=== PATIENT | female | born 1935 | race Caucasian/White ===

== ENCOUNTER 2017-05-31 15:45 | Inpatient (IN) ==
[2017-05-31] MEDS ORDERED: ONDANSETRON 4 MG/2 ML VIAL IV STA (17:09)
[2017-05-31] MEDS ORDERED: ASPIRIN 325 MG TABLET PO STA (17:09)
[2017-05-31] MEDS ORDERED: cefTRIAXone 1,000 MG in SODIUM CHLORIDE 0.9% 100 ML IV STA (17:09)
[2017-05-31] MEDS ORDERED: methylPREDNISolone SOD SUC 125 MG/2 ML VIAL IV STA (17:09)
[2017-05-31] MEDS ORDERED: FUROSEMIDE 100 MG/10 ML VIAL IV STA (17:09)
[2017-05-31] MEDS ORDERED: ALBUTEROL NEB SOLN 5 MG/ML 20 ML/BOTTLE RESP TX SCH (17:30)
[2017-05-31] MEDS ORDERED: cefTRIAXone 1,000 MG VIAL ONE (17:37)
[2017-05-31] MEDS ORDERED: methylPREDNISolone SOD SUC 125 MG/2 ML VIAL ONE (17:37)
[2017-05-31] MEDS ORDERED: FUROSEMIDE 40 MG/4 ML VIAL ONE (17:37)
[2017-05-31] MEDS ORDERED: ONDANSETRON 4 MG/2 ML VIAL ONE (17:37)
[2017-05-31] MEDS ORDERED: ASPIRIN 325 MG TABLET ONE (17:37)
[2017-05-31 17:44] LABS: ABG Base Excess 5.1 MMOL/L (-2.5-2.5); ABG HCO3 29.2 MMOL/L (20-26); ABG Oxygen Saturation 91.7 % (95-100); ABG PCO2 40.8 MM HG (35-48); ABG PH 7.472 (7.35-7.45); ABG TCO2 30.4 MMOL/L (23-27)
[2017-05-31 17:45] LABS: Basophils % 0.1 % (0.0-0.8); Hematocrit 39.9 VOL% (35.7-47.0); Hemoglobin 12.6 GM/DL (12.0-16.0); Immature Granulocytes % 1.1 %; Immature Granulocytes Absolute 0.08 #; Lymphocytes # 0.4 10*3/uL (1.4-4.0); Lymphocytes % 5.4 % (21.3-54.2); Mean Corpuscular HGB Conc 31.6 GM/DL (32-36); Mean Corpuscular Hemoglobin 29 PG (27-34); Mean Corpuscular Volume 90.5 FL (87-102); Mean Platelet Volume 10.9 FL (9.6-12.0); Monocytes # 0.2 10*3/uL (0.11-0.8); Monocytes % 2.2 % (1.7-12.7); Neutrophils # 6.9 10*3/uL (1.4-7.4); Neutrophils % 91.2 % (38.7-73.9); Platelet Count 177 T/CUMM (130-400); Red Blood Count 4.41 MC/CUMM (3.8-5.5); Red Cell Distribution Width 15.6 % (9.3-17.3); White Blood Count 7.6 T/CUMM (4-12)
[2017-05-31 17:58] LABS: Alanine Aminotransferase 33 U/L (13-56); Albumin 3.8 G/DL (3.4-5.0); Alkaline Phosphatase 134 U/L (45-117); Aspartate Amino Transferase 37 U/L (0-37); Blood Urea Nitrogen 13 MG/DL (7-18); Calcium 8.9 MG/DL (8.5-10.1); Glucose 128 MG/DL (74-106); Osmolality,Calculated 276.7 MOS/KG (273-304); Potassium 3.8 MMOL/L (3.5-5.1); Sodium 138 MMOL/L (136-145); Total Protein 7.2 G/DL (6.4-8.3); Troponin I Only < 0.015 NG/ML (0.00-0.045)
[2017-05-31 18:13] LABS: INR 1.4; PT Patient Result 14.7 SECS
[2017-05-31 18:43] LABS: INR 1.4; PT Patient Result 14.7 SECS; Partial Thromboplastin Time 33.7 SECS (0-40)
[2017-05-31 19:11] LABS: Apearance,Urine CLEAR (Clear); Bilirubin,Urine Negative (Negative); Blood, Urine Small mg/dL (Negative); Glucose,Urine (UA) Negative (Negative); Ketones,Urine Negative (Negative); Nitrite,Urine Negative (Negative); Protein,Urine Negative; RBC,Urine 2 /HPF (0-4); Urine Color Straw (Yellow); Urine Specific Gravity 1.006 (1.001-1.035); Urine Urobilinogen < 2.0 EU/DL (0.2-1.0); WBC,Urine 1 /HPF (0-6)
[2017-05-31] MEDS ORDERED: PIPERACILLIN/TAZOBACTAM 3,375 MG VIAL IV ONE (20:14)
[2017-05-31] MEDS ORDERED: SODIUM CHLORIDE 0.9% 100 ML IV ONE (20:14)
[2017-05-31] MEDS: PIPERACILLIN/TAZOBACTAM 3,375 MG in SODIUM CHLORIDE 0.9% 100 ML IV SCH (20:20)
[2017-05-31] MEDS ORDERED: ACETAMINOPHEN 325 MG TABLET PO PRN (20:51)
[2017-05-31] MEDS ORDERED: METHOCARBAMOL 750 MG TABLET PO PRN (20:51)
[2017-05-31] MEDS ORDERED: ONDANSETRON 4 MG/2 ML VIAL IV PRN (20:51)
[2017-05-31] MEDS ORDERED: CETIRIZINE 10 MG TABLET PO PRN (20:51)
[2017-05-31] MEDS: ENOXAPARIN 40 MG/0.4 ML SYRINGE SUBCUT SCH (21:41)
[2017-05-31] MEDS: FERROUS SULFATE 325 MG TABLET PO SCH ×2 (21:42→21:58)
[2017-05-31] MEDS: GABAPENTIN 300 MG CAPSULE PO SCH (21:42)
[2017-05-31] MEDS: DILTIAZEM CD 240 MG CAPSULE PO SCH (21:42)
[2017-05-31] MEDS: ROSUVASTATIN 20 MG TABLET PO SCH (21:42)
[2017-05-31] MEDS: ASPIRIN EC 81 MG TABLET PO SCH (21:43)
[2017-05-31] MEDS: THYROID 60 MG TABLET PO SCH (21:43)
[2017-05-31] MEDS: ISOSORBIDE MONONITRATE 30 MG TABLET PO SCH (21:43)
[2017-05-31 22:22] LABS: Lactic Acid 6.3 MMOL/L (0.4-2.0)
[2017-06-01] MEDS: ALBUTEROL 1.25 MG/3 ML NEB RESP TX SCH ×4 (00:47→20:33)
[2017-06-01] MEDS: methylPREDNISolone SOD SUC 40 MG/1 ML VIAL IV SCH ×3 (03:56→16:43)
[2017-06-01] MEDS: PIPERACILLIN/TAZOBACTAM 3,375 MG in SODIUM CHLORIDE 0.9% 100 ML IV SCH (04:35)
[2017-06-01 07:33] LABS: Hematocrit 34.7 VOL% (35.7-47.0); Hemoglobin 11.5 GM/DL (12.0-16.0); Immature Granulocytes % 0.9 %; Immature Granulocytes Absolute 0.07 #; Lymphocytes # 0.6 10*3/uL (1.4-4.0); Lymphocytes % 8.2 % (21.3-54.2); Mean Corpuscular HGB Conc 33.1 GM/DL (32-36); Mean Corpuscular Hemoglobin 29 PG (27-34); Mean Corpuscular Volume 87.8 FL (87-102); Monocytes # 0.1 10*3/uL (0.11-0.8); Monocytes % 1.3 % (1.7-12.7); Neutrophils # 6.7 10*3/uL (1.4-7.4); Neutrophils % 89.6 % (38.7-73.9); Platelet Count 154 T/CUMM (130-400); Red Blood Count 3.95 MC/CUMM (3.8-5.5); Red Cell Distribution Width 15.7 % (9.3-17.3); White Blood Count 7.5 T/CUMM (4-12)
[2017-06-01 07:52] LABS: Lactic Acid 3.1 MMOL/L (0.4-2.0)
[2017-06-01 08:01] LABS: Osmolality,Calculated 282.5 MOS/KG (273-304); Potassium 3.3 MMOL/L (3.5-5.1)
[2017-06-01 08:05] LABS: Albumin 3.3 G/DL (3.4-5.0); Bilirubin,Total 0.6 MG/DL (0.2-1.0); Calcium 8.9 MG/DL (8.5-10.1); Osmolality,Calculated 282.5 MOS/KG (273-304); Potassium 3.2 MMOL/L (3.5-5.1); Total Protein 6.3 G/DL (6.4-8.3)
[2017-06-01] MEDS: AZITHROMYCIN INJ 500 MG in SODIUM CHLORIDE 0.9% 250 ML IV SCH (10:23)
[2017-06-01] MEDS: POLYVINYL ALCOHOL 1.4% OPH SOLN 15 ML BOTTLE BOTH EYES SCH (10:40)
[2017-06-01] MEDS: MONTELUKAST 10 MG TABLET PO SCH (10:40)
[2017-06-01] MEDS: FERROUS SULFATE 325 MG TABLET PO SCH ×3 (10:40→21:26)
[2017-06-01] MEDS: CHOLECALCIFEROL 1,000 UNIT TABLET PO SCH (10:40)
[2017-06-01] MEDS: CITALOPRAM 20 MG TABLET PO SCH (10:40)
[2017-06-01] MEDS: ISOSORBIDE MONONITRATE 30 MG TABLET PO SCH ×2 (10:40→21:26)
[2017-06-01] MEDS: DILTIAZEM CD 240 MG CAPSULE PO SCH ×2 (10:40→21:25)
[2017-06-01] MEDS: PANTOPRAZOLE 40 MG TABLET PO SCH (10:41)
[2017-06-01] MEDS: ENOXAPARIN 40 MG/0.4 ML SYRINGE SUBCUT SCH ×2 (10:42→21:27)
[2017-06-01] MEDS ORDERED: POTASSIUM CHLORIDE 20 MEQ TABLET PO ONE (15:50)
[2017-06-01] MEDS: WARFARIN 3 MG TABLET PO SCH (17:44)
[2017-06-01] MEDS: THYROID 60 MG TABLET PO SCH (21:25)
[2017-06-01] MEDS: ROSUVASTATIN 20 MG TABLET PO SCH (21:26)
[2017-06-01] MEDS: GABAPENTIN 300 MG CAPSULE PO SCH (21:26)
[2017-06-01] MEDS: ASPIRIN EC 81 MG TABLET PO SCH (21:27)
[2017-06-01] MEDS: cefTRIAXone 1,000 MG in SYRINGE 1 EACH IV SCH (21:27)
[2017-06-02] MEDS: methylPREDNISolone SOD SUC 40 MG/1 ML VIAL IV SCH ×3 (01:10→17:58)
[2017-06-02] MEDS: ALBUTEROL 1.25 MG/3 ML NEB RESP TX SCH ×4 (01:25→19:43)
[2017-06-02 06:25] LABS: INR 1.5
[2017-06-02] MEDS: AZITHROMYCIN INJ 500 MG in SODIUM CHLORIDE 0.9% 250 ML IV SCH (09:59)
[2017-06-02] MEDS: PANTOPRAZOLE 40 MG TABLET PO SCH (09:59)
[2017-06-02] MEDS: ISOSORBIDE MONONITRATE 30 MG TABLET PO SCH ×2 (09:59→22:34)
[2017-06-02] MEDS: CHOLECALCIFEROL 1,000 UNIT TABLET PO SCH (09:59)
[2017-06-02] MEDS: DILTIAZEM CD 240 MG CAPSULE PO SCH ×2 (09:59→22:34)
[2017-06-02] MEDS: CITALOPRAM 20 MG TABLET PO SCH (09:59)
[2017-06-02] MEDS: MONTELUKAST 10 MG TABLET PO SCH (09:59)
[2017-06-02] MEDS: FERROUS SULFATE 325 MG TABLET PO SCH ×3 (09:59→22:34)
[2017-06-02] MEDS: POLYVINYL ALCOHOL 1.4% OPH SOLN 15 ML BOTTLE BOTH EYES SCH (09:59)
[2017-06-02] MEDS: ENOXAPARIN 40 MG/0.4 ML SYRINGE SUBCUT SCH ×2 (10:00→22:34)
[2017-06-02] MEDS: BISACODYL 5 MG TABLET PO SCH (11:43)
[2017-06-02] MEDS: POLYETHYLENE GLYCOL POWDER 17 GM PACK PO SCH (11:44)
[2017-06-02] MEDS: POTASSIUM CHLORIDE 20 MEQ TABLET PO SCH (15:06)
[2017-06-02] MEDS: WARFARIN 3 MG TABLET PO SCH (18:00)
[2017-06-02] MEDS: ASPIRIN EC 81 MG TABLET PO SCH (22:34)
[2017-06-02] MEDS: cefTRIAXone 1,000 MG in SYRINGE 1 EACH IV SCH (22:34)
[2017-06-02] MEDS: THYROID 60 MG TABLET PO SCH (22:34)
[2017-06-02] MEDS: ROSUVASTATIN 20 MG TABLET PO SCH (22:34)
[2017-06-02] MEDS: GABAPENTIN 300 MG CAPSULE PO SCH (22:34)
[2017-06-03] MEDS: ALBUTEROL 1.25 MG/3 ML NEB RESP TX SCH ×4 (00:22→19:37)
[2017-06-03] MEDS: methylPREDNISolone SOD SUC 40 MG/1 ML VIAL IV SCH ×2 (01:20→11:24)
[2017-06-03 05:20] LABS: INR 1.8; PT Patient Result 18.4 SECS
[2017-06-03 06:21] LABS: Osmolality,Calculated 283.8 MOS/KG (273-304); Potassium 4.6 MMOL/L (3.5-5.1)
[2017-06-03] MEDS: FERROUS SULFATE 325 MG TABLET PO SCH ×3 (11:19→21:08)
[2017-06-03] MEDS: PANTOPRAZOLE 40 MG TABLET PO SCH (11:20)
[2017-06-03] MEDS: DILTIAZEM CD 240 MG CAPSULE PO SCH ×2 (11:20→21:09)
[2017-06-03] MEDS: POTASSIUM CHLORIDE 20 MEQ TABLET PO SCH (11:20)
[2017-06-03] MEDS: MONTELUKAST 10 MG TABLET PO SCH (11:20)
[2017-06-03] MEDS: CITALOPRAM 20 MG TABLET PO SCH (11:21)
[2017-06-03] MEDS: CHOLECALCIFEROL 1,000 UNIT TABLET PO SCH (11:22)
[2017-06-03] MEDS: ISOSORBIDE MONONITRATE 30 MG TABLET PO SCH ×2 (11:22→21:09)
[2017-06-03] MEDS: BISACODYL 5 MG TABLET PO SCH (11:22)
[2017-06-03] MEDS: POLYETHYLENE GLYCOL POWDER 17 GM PACK PO SCH (11:23)
[2017-06-03] MEDS: POLYVINYL ALCOHOL 1.4% OPH SOLN 15 ML BOTTLE BOTH EYES SCH (11:23)
[2017-06-03] MEDS: AZITHROMYCIN INJ 500 MG in SODIUM CHLORIDE 0.9% 250 ML IV SCH (11:24)
[2017-06-03] MEDS: ENOXAPARIN 40 MG/0.4 ML SYRINGE SUBCUT SCH ×2 (11:35→21:09)
[2017-06-03] MEDS: WARFARIN 3 MG TABLET PO SCH (17:51)
[2017-06-03] MEDS: ASPIRIN EC 81 MG TABLET PO SCH (21:09)
[2017-06-03] MEDS: cefTRIAXone 1,000 MG in SYRINGE 1 EACH IV SCH (21:09)
[2017-06-03] MEDS: ROSUVASTATIN 20 MG TABLET PO SCH (21:09)
[2017-06-03] MEDS: THYROID 60 MG TABLET PO SCH (21:09)
[2017-06-03] MEDS: GABAPENTIN 300 MG CAPSULE PO SCH (21:09)
[2017-06-04] MEDS: ALBUTEROL 1.25 MG/3 ML NEB RESP TX SCH ×3 (00:08→12:36)
[2017-06-04] MEDS: guaiFENesin 200 MG/10 ML UDCUP PO PRN ×2 (01:07→09:50)
[2017-06-04 06:31] LABS: INR 2.8
[2017-06-04 07:11] LABS: PT Patient Result 28.3 SECS
[2017-06-04 07:53] VITALS: BP 124/83
[2017-06-04] MEDS ORDERED: methylPREDNISolone SOD SUC 40 MG/1 ML VIAL IV SCH (09:00)
[2017-06-04 09:33] LABS: Basophils % 0.1 % (0.0-0.8); Hematocrit 34.7 VOL% (35.7-47.0); Hemoglobin 11.2 GM/DL (12.0-16.0); Immature Granulocytes % 1.3 %; Immature Granulocytes Absolute 0.17 #; Lymphocytes # 0.6 10*3/uL (1.4-4.0); Lymphocytes % 4.5 % (21.3-54.2); Mean Corpuscular HGB Conc 32.3 GM/DL (32-36); Mean Corpuscular Hemoglobin 29 PG (27-34); Mean Platelet Volume 10.6 FL (9.6-12.0); Monocytes # 0.7 10*3/uL (0.11-0.8); Monocytes % 5.1 % (1.7-12.7); Neutrophils # 11.4 10*3/uL (1.4-7.4); Platelet Count 162 T/CUMM (130-400); Red Cell Distribution Width 16.5 % (9.3-17.3); White Blood Count 12.8 T/CUMM (4-12)
[2017-06-04] MEDS: DILTIAZEM CD 240 MG CAPSULE PO SCH (09:47)
[2017-06-04] MEDS: CITALOPRAM 20 MG TABLET PO SCH (09:47)
[2017-06-04] MEDS: POLYVINYL ALCOHOL 1.4% OPH SOLN 15 ML BOTTLE BOTH EYES SCH (09:47)
[2017-06-04] MEDS: BISACODYL 5 MG TABLET PO SCH (09:47)
[2017-06-04] MEDS: POLYETHYLENE GLYCOL POWDER 17 GM PACK PO SCH (09:48)
[2017-06-04] MEDS: PANTOPRAZOLE 40 MG TABLET PO SCH (09:48)
[2017-06-04] MEDS: FERROUS SULFATE 325 MG TABLET PO SCH (09:48)
[2017-06-04] MEDS: ISOSORBIDE MONONITRATE 30 MG TABLET PO SCH (09:48)
[2017-06-04] MEDS: AZITHROMYCIN INJ 500 MG in SODIUM CHLORIDE 0.9% 250 ML IV SCH (09:49)
[2017-06-04] MEDS: CHOLECALCIFEROL 1,000 UNIT TABLET PO SCH (09:49)
[2017-06-04] MEDS: MONTELUKAST 10 MG TABLET PO SCH (10:06)
[2017-06-04 10:10] LABS: Hypochromasia 1+; Lymphocytes 6 % (20-55); Segmented Neutrophils 91 % (50-85); Total Cells Counted 100
[2017-06-04 10:11] LABS: Microcytosis 1+; Ovalocytes Few; Platelet Estimate Adequate
== END 2017-06-04 13:14 | disposition home health service (06) | DRG 193 ==
LOC: N.ED 15:45 → N.EDINP 18:57 → N.2E 19:44
PROVIDERS: ADMIT Internal Medicine; ATTEND Internal Medicine

== ENCOUNTER 2017-07-11 15:41 | Inpatient (IN) ==
[2017-07-11] MEDS ORDERED: ASPIRIN 325 MG TABLET PO STA (16:49)
[2017-07-11] MEDS ORDERED: ASPIRIN 325 MG TABLET ONE (17:19)
[2017-07-11] MEDS ORDERED: IBUPROFEN 800 MG TABLET PO STA (17:22)
[2017-07-11] MEDS ORDERED: IBUPROFEN 800 MG TABLET ONE (17:26)
[2017-07-11 17:32] LABS: Basophils % 0.2 % (0.0-0.8); Hematocrit 36.4 VOL% (35.7-47.0); Hemoglobin 12.2 GM/DL (12.0-16.0); Immature Granulocytes % 1.1 %; Immature Granulocytes Absolute 0.14 #; Lymphocytes # 0.3 10*3/uL (1.4-4.0); Lymphocytes % 2.5 % (21.3-54.2); Mean Corpuscular HGB Conc 33.5 GM/DL (32-36); Mean Corpuscular Hemoglobin 31 PG (27-34); Mean Corpuscular Volume 93.3 FL (87-102); Mean Platelet Volume 10.6 FL (9.6-12.0); Monocytes # 0.8 10*3/uL (0.11-0.8); Monocytes % 6.1 % (1.7-12.7); Neutrophils # 11.3 10*3/uL (1.4-7.4); Neutrophils % 90.1 % (38.7-73.9); Platelet Count 135 T/CUMM (130-400); Red Cell Distribution Width 20.6 % (9.3-17.3); White Blood Count 12.6 T/CUMM (4-12)
[2017-07-11 17:58] LABS: Albumin 3.4 G/DL (3.4-5.0); Bilirubin,Total 1.3 MG/DL (0.2-1.0); Calcium 8.2 MG/DL (8.5-10.1); Osmolality,Calculated 282.7 MOS/KG (273-304); Potassium 3.4 MMOL/L (3.5-5.1); Total Protein 6.8 G/DL (6.4-8.3); Troponin I Only 0.028 NG/ML (0.00-0.045)
[2017-07-11 18:49] LABS: Lymphocytes 3 % (20-55); Segmented Neutrophils 97 % (50-85); Total Cells Counted 100
[2017-07-11 18:50] LABS: Platelet Estimate Decreased; Polychromasia Few
[2017-07-12] MEDS ORDERED: LEVOFLOXACIN INJ 750 MG in PREMIX 1 EACH IV STA (00:54)
[2017-07-12] MEDS ORDERED: FUROSEMIDE 20 MG/2 ML VIAL IV STA (00:54)
[2017-07-12] MEDS ORDERED: ALBUTEROL/IPRATROPIUM 3 ML NEB RESP TX STA (01:02)
[2017-07-12] MEDS ORDERED: FUROSEMIDE 20 MG/2 ML VIAL ONE (01:32)
[2017-07-12] MEDS ORDERED: LEVOFLOXACIN INJ 150 ML IV ONE (01:32)
[2017-07-12] MEDS ORDERED: ACETAMINOPHEN 325 MG TABLET ONE (01:33)
[2017-07-12 01:37] LABS: INR 2.3; PT Patient Result 23.8 SECS; Partial Thromboplastin Time 43.8 SECS (0-40)
[2017-07-12 01:39] LABS: Apearance,Urine CLEAR (Clear); Bilirubin,Urine Negative (Negative); Blood, Urine Negative (Negative); Glucose,Urine (UA) >=500 mg/dL (Negative); Ketones,Urine Negative (Negative); Lactic Acid 2.6 MMOL/L (0.4-2.0); Mucus,Urine Occasional /LPF (Occasional); Nitrite,Urine Negative (Negative); Protein,Urine 30 MG/DL; RBC,Urine <1 /HPF (0-4); Squamous Epithelial Cell,Urine Occasional /HPF (0-10); Urine Color Yellow (Yellow); Urine Specific Gravity 1.013 (1.001-1.035); WBC,Urine 1 /HPF (0-6)
[2017-07-12] MEDS ORDERED: METHOCARBAMOL 750 MG TABLET PO STA (02:46)
[2017-07-12] MEDS ORDERED: METHOCARBAMOL 750 MG TABLET ONE (02:47)
[2017-07-12] MEDS ORDERED: ONDANSETRON 4 MG/2 ML VIAL IV PRN (02:48)
[2017-07-12] MEDS ORDERED: ALBUTEROL 2.5 MG/3 ML NEB RESP TX PRN (02:48)
[2017-07-12 02:54] LABS: ABG HCO3 21.7 MMOL/L (20-26); ABG Oxygen Saturation 98.6 % (95-100); ABG PCO2 30.3 MM HG (35-48); ABG PH 7.473 (7.35-7.45); ABG PO2 134.1 MM HG (80-95); ABG TCO2 22.6 MMOL/L (23-27); Allen Test Positive
[2017-07-12] MEDS ORDERED: PANTOPRAZOLE 40 MG VIAL IV SCH (03:00)
[2017-07-12 04:13] LABS: Basophils % 0.1 % (0.0-0.8); Eosinophils % 0.1 % (0.00-10.9); Hematocrit 33.7 VOL% (35.7-47.0); Immature Granulocytes % 1.2 %; Immature Granulocytes Absolute 0.17 #; Lymphocytes # 0.3 10*3/uL (1.4-4.0); Lymphocytes % 2.2 % (21.3-54.2); Mean Corpuscular HGB Conc 32.6 GM/DL (32-36); Mean Corpuscular Hemoglobin 31 PG (27-34); Mean Corpuscular Volume 94.7 FL (87-102); Mean Platelet Volume 11.1 FL (9.6-12.0); Monocytes # 0.9 10*3/uL (0.11-0.8); Monocytes % 5.8 % (1.7-12.7); NRBC # 0.03 10*3/uL; Neutrophils # 13.4 10*3/uL (1.4-7.4); Neutrophils % 90.6 % (38.7-73.9); Platelet Count 123 T/CUMM (130-400); Red Blood Count 3.56 MC/CUMM (3.8-5.5); Red Cell Distribution Width 19.9 % (9.3-17.3); White Blood Count 14.8 T/CUMM (4-12)
[2017-07-12 04:27] LABS: INR 2.8; Partial Thromboplastin Time 35.5 SECS (0-40)
[2017-07-12 04:32] LABS: PT Patient Result 28.1 SECS
[2017-07-12 04:40] LABS: Anisocytosis 1+; Band Neutrophils 14 % (0-10); Lymphocytes 2 % (20-55); Poikilocytosis 1+; Segmented Neutrophils 83 % (50-85); Total Cells Counted 100
[2017-07-12 04:50] LABS: Calcium 7.9 MG/DL (8.5-10.1); Osmolality,Calculated 278.8 MOS/KG (273-304)
[2017-07-12] MEDS ORDERED: SODIUM CHLORIDE 0.9% 100 ML IV ONE ×2 (04:51→16:05)
[2017-07-12] MEDS ORDERED: PIPERACILLIN/TAZOBACTAM 3,375 MG VIAL IV ONE (04:51)
[2017-07-12] MEDS ORDERED: PANTOPRAZOLE 40 MG VIAL IV ONE (04:51)
[2017-07-12] MEDS: PIPERACILLIN/TAZOBACTAM 3,375 MG in SODIUM CHLORIDE 0.9% 100 ML IV SCH ×3 (05:07→18:34)
[2017-07-12 05:24] LABS: Thyroid Stimulating Hormone 2.33 uIU/ml (0.358-3.74)
[2017-07-12] MEDS ORDERED: ALBUTEROL/IPRATROPIUM 3 ML NEB RESP TX SCH (07:00)
[2017-07-12] MEDS: FUROSEMIDE 20 MG/2 ML VIAL IV SCH ×2 (09:40→16:10)
[2017-07-12] MEDS ORDERED: ALBUTEROL/IPRATROPIUM 3 ML NEB RESP TX PRN (10:45)
[2017-07-12] MEDS: ALBUTEROL/IPRATROPIUM 3 ML NEB RESP TX SCH ×3 (12:58→19:10)
[2017-07-12] MEDS ORDERED: GABAPENTIN 600 MG TABLET PO SCH ×2 (14:45→21:00)
[2017-07-12] MEDS ORDERED: NON-FORMULARY MEDICATION (Albuterol Sulfate [Ventolin Hfa] 2 PUFF) INH PRN (14:54)
[2017-07-12] MEDS ORDERED: CETIRIZINE 10 MG TABLET PO PRN (14:54)
[2017-07-12] MEDS ORDERED: PROMETHAZINE 25 MG TABLET PO PRN (14:54)
[2017-07-12] MEDS: ACETAMINOPHEN 325 MG TABLET PO PRN (15:16)
[2017-07-12] MEDS: METHOCARBAMOL 750 MG TABLET PO PRN (15:16)
[2017-07-12] MEDS ORDERED: DILTIAZEM 100 MG VIAL.ADD IV ONE (16:05)
[2017-07-12] MEDS ORDERED: DILTIAZEM 50 MG/10 ML VIAL IV ONE (16:12)
[2017-07-12] MEDS: PANTOPRAZOLE 40 MG TABLET PO SCH (16:24)
[2017-07-12] MEDS: DILTIAZEM INJ 100 MG in SODIUM CHLORIDE 0.9% 100 ML IV SCH (16:25)
[2017-07-12] MEDS ORDERED: NITROGLYCERIN SL 0.4 MG TABLET SL PRN (16:26)
[2017-07-12] MEDS: METOPROLOL TARTRATE 25 MG TABLET PO SCH ×2 (16:39→21:42)
[2017-07-12] MEDS: WARFARIN 4 MG TABLET PO SCH (18:34)
[2017-07-12] MEDS: DILTIAZEM CD 240 MG CAPSULE PO SCH (20:21)
[2017-07-12] MEDS: ASPIRIN EC 81 MG TABLET PO SCH (20:22)
[2017-07-12] MEDS: ISOSORBIDE MONONITRATE 60 MG TABLET PO SCH (20:22)
[2017-07-12] MEDS: THYROID 60 MG TABLET PO SCH (20:22)
[2017-07-12] MEDS: GABAPENTIN 300 MG CAPSULE PO SCH (20:22)
[2017-07-13] MEDS: PIPERACILLIN/TAZOBACTAM 3,375 MG in SODIUM CHLORIDE 0.9% 100 ML IV SCH ×3 (05:09→18:39)
[2017-07-13] MEDS: DILTIAZEM INJ 100 MG in SODIUM CHLORIDE 0.9% 100 ML IV SCH ×2 (05:17→17:14)
[2017-07-13 05:24] LABS: Basophils % 0.1 % (0.0-0.8); Eosinophils % 0.4 % (0.00-10.9); Hematocrit 32.3 VOL% (35.7-47.0); Hemoglobin 10.2 GM/DL (12.0-16.0); Immature Granulocytes % 1.4 %; Immature Granulocytes Absolute 0.13 #; Lymphocytes # 0.8 10*3/uL (1.4-4.0); Lymphocytes % 8.4 % (21.3-54.2); Mean Corpuscular HGB Conc 31.6 GM/DL (32-36); Mean Corpuscular Hemoglobin 30 PG (27-34); Mean Corpuscular Volume 95.3 FL (87-102); Mean Platelet Volume 10.7 FL (9.6-12.0); Monocytes # 0.6 10*3/uL (0.11-0.8); Monocytes % 6.7 % (1.7-12.7); Platelet Count 106 T/CUMM (130-400); Red Blood Count 3.39 MC/CUMM (3.8-5.5); Red Cell Distribution Width 19.4 % (9.3-17.3); White Blood Count 9.6 T/CUMM (4-12)
[2017-07-13 05:35] LABS: INR 2.1; PT Patient Result 21.4 SECS
[2017-07-13 05:39] LABS: Band Neutrophils 1 % (0-10); Giant Platelets Few; Hypochromasia 1+; Lymphocytes 7 % (20-55); Ovalocytes Slight; Platelet Estimate Decreased; Segmented Neutrophils 85 % (50-85); Total Cells Counted 100
[2017-07-13 05:53] LABS: Calcium 7.7 MG/DL (8.5-10.1); Potassium 3.2 MMOL/L (3.5-5.1)
[2017-07-13 05:56] LABS: % Iron Saturation 8.4 % (18-50); Free T4 (Free Thyroxine) 0.89 NG/DL (0.76-1.46)
[2017-07-13] MEDS: LEVOFLOXACIN INJ 500 MG in PREMIX 1 EACH IV SCH (06:36)
[2017-07-13] MEDS: ALBUTEROL/IPRATROPIUM 3 ML NEB RESP TX SCH ×4 (06:52→20:03)
[2017-07-13] MEDS ORDERED: VILANTEROL INH SCH (09:00)
[2017-07-13] MEDS ORDERED: FLUTICASONE INH SCH (09:00)
[2017-07-13] MEDS: METOPROLOL TARTRATE 25 MG TABLET PO SCH (09:10)
[2017-07-13] MEDS: MONTELUKAST 10 MG TABLET PO SCH (09:10)
[2017-07-13] MEDS: CHOLECALCIFEROL 1,000 UNIT TABLET PO SCH (09:10)
[2017-07-13] MEDS: CITALOPRAM 20 MG TABLET PO SCH (09:10)
[2017-07-13] MEDS: POLYVINYL ALCOHOL 1.4% OPH SOLN 15 ML BOTTLE BOTH EYES SCH (09:10)
[2017-07-13] MEDS: DILTIAZEM CD 240 MG CAPSULE PO SCH ×2 (09:10→20:58)
[2017-07-13] MEDS: OXYBUTYNIN XL 5 MG TABLET PO SCH (09:10)
[2017-07-13] MEDS: POLYETHYLENE GLYCOL POWDER 17 GM PACK PO SCH (09:11)
[2017-07-13] MEDS: FUROSEMIDE 20 MG/2 ML VIAL IV SCH (09:11)
[2017-07-13] MEDS: PANTOPRAZOLE 40 MG TABLET PO SCH ×2 (09:11→17:32)
[2017-07-13] MEDS: ISOSORBIDE MONONITRATE 30 MG TABLET PO SCH (09:11)
[2017-07-13] MEDS ORDERED: IRON DEXTRAN 25 MG in SYRINGE 1 EACH IV ONE (09:21)
[2017-07-13] MEDS ORDERED: POTASSIUM CHLORIDE 20 MEQ TABLET PO PRN (09:24)
[2017-07-13] MEDS: FUROSEMIDE 40 MG TABLET PO SCH (10:27)
[2017-07-13] MEDS: POTASSIUM CHLORIDE 20 MEQ TABLET PO SCH ×3 (10:27→17:16)
[2017-07-13] MEDS ORDERED: IRON SUCROSE IV SCH (11:30)
[2017-07-13] MEDS ORDERED: IRON SUCROSE 175 MG in SODIUM CHLORIDE 0.9% 100 ML IV ONE ×2 (12:00→16:00)
[2017-07-13] MEDS: METOPROLOL SUCCINATE XL 50 MG TABLET PO SCH ×2 (12:38→20:59)
[2017-07-13] MEDS: ACETAMINOPHEN 325 MG TABLET PO PRN (12:45)
[2017-07-13] MEDS: WARFARIN 4 MG TABLET PO SCH (17:16)
[2017-07-13] MEDS: THYROID 60 MG TABLET PO SCH (20:58)
[2017-07-13] MEDS: ISOSORBIDE MONONITRATE 60 MG TABLET PO SCH (20:58)
[2017-07-13] MEDS: GABAPENTIN 300 MG CAPSULE PO SCH (20:59)
[2017-07-13] MEDS: ASPIRIN EC 81 MG TABLET PO SCH (20:59)
[2017-07-13] MEDS: METHOCARBAMOL 750 MG TABLET PO PRN (22:06)
[2017-07-14] MEDS ORDERED: LEVOFLOXACIN INJ 750 MG in PREMIX 1 EACH IV SCH (02:00)
[2017-07-14] MEDS: ACETAMINOPHEN 325 MG TABLET PO PRN ×2 (02:14→22:11)
[2017-07-14] MEDS: PIPERACILLIN/TAZOBACTAM 3,375 MG in SODIUM CHLORIDE 0.9% 100 ML IV SCH (02:31)
[2017-07-14 06:27] LABS: Basophils % 0.1 % (0.0-0.8); Eosinophils % 0.4 % (0.00-10.9); Hematocrit 31.4 VOL% (35.7-47.0); Hemoglobin 10.3 GM/DL (12.0-16.0); Immature Granulocytes % 1.4 %; Lymphocytes # 0.6 10*3/uL (1.4-4.0); Lymphocytes % 8.3 % (21.3-54.2); Mean Corpuscular HGB Conc 32.8 GM/DL (32-36); Mean Corpuscular Hemoglobin 30 PG (27-34); Mean Corpuscular Volume 92.6 FL (87-102); Mean Platelet Volume 11.3 FL (9.6-12.0); Monocytes # 0.7 10*3/uL (0.11-0.8); Neutrophils # 5.6 10*3/uL (1.4-7.4); Neutrophils % 79.8 % (38.7-73.9); Platelet Count 103 T/CUMM (130-400); Red Blood Count 3.39 MC/CUMM (3.8-5.5); Red Cell Distribution Width 19.5 % (9.3-17.3)
[2017-07-14] MEDS: LEVOFLOXACIN INJ 500 MG in PREMIX 1 EACH IV SCH (06:29)
[2017-07-14 06:38] LABS: INR 2.2
[2017-07-14 06:39] LABS: PT Patient Result 22.6 SECS
[2017-07-14 06:46] LABS: Elliptocytes Few; Giant Platelets Few; Hypochromasia 1+; Platelet Estimate Decreased
[2017-07-14 06:47] LABS: Microcytosis Slight
[2017-07-14] MEDS: ALBUTEROL/IPRATROPIUM 3 ML NEB RESP TX SCH ×4 (07:03→19:52)
[2017-07-14 07:04] LABS: Calcium 8.1 MG/DL (8.5-10.1); Osmolality,Calculated 272.4 MOS/KG (273-304); Potassium 3.9 MMOL/L (3.5-5.1)
[2017-07-14] MEDS: FUROSEMIDE 40 MG TABLET PO SCH (08:59)
[2017-07-14] MEDS: POLYVINYL ALCOHOL 1.4% OPH SOLN 15 ML BOTTLE BOTH EYES SCH (08:59)
[2017-07-14] MEDS: OXYBUTYNIN XL 5 MG TABLET PO SCH (08:59)
[2017-07-14] MEDS: POLYETHYLENE GLYCOL POWDER 17 GM PACK PO SCH (08:59)
[2017-07-14] MEDS: DILTIAZEM CD 240 MG CAPSULE PO SCH ×2 (09:00→20:59)
[2017-07-14] MEDS: PANTOPRAZOLE 40 MG TABLET PO SCH ×2 (09:00→17:17)
[2017-07-14] MEDS: MONTELUKAST 10 MG TABLET PO SCH (09:00)
[2017-07-14] MEDS: CITALOPRAM 20 MG TABLET PO SCH (09:00)
[2017-07-14] MEDS: CHOLECALCIFEROL 1,000 UNIT TABLET PO SCH (09:00)
[2017-07-14] MEDS: ISOSORBIDE MONONITRATE 30 MG TABLET PO SCH (09:01)
[2017-07-14] MEDS: METOPROLOL SUCCINATE XL 50 MG TABLET PO SCH ×2 (09:01→21:00)
[2017-07-14] MEDS: DILTIAZEM INJ 100 MG in SODIUM CHLORIDE 0.9% 100 ML IV SCH (16:24)
[2017-07-14] MEDS: WARFARIN 4 MG TABLET PO SCH (17:17)
[2017-07-14] MEDS: THYROID 60 MG TABLET PO SCH (20:59)
[2017-07-14] MEDS: ASPIRIN EC 81 MG TABLET PO SCH (20:59)
[2017-07-14] MEDS: ISOSORBIDE MONONITRATE 60 MG TABLET PO SCH (20:59)
[2017-07-14] MEDS: GABAPENTIN 300 MG CAPSULE PO SCH (21:00)
[2017-07-14] MEDS: METHOCARBAMOL 750 MG TABLET PO PRN (22:11)
[2017-07-15 05:05] LABS: Basophils % 0.3 % (0.0-0.8); Eosinophils % 0.4 % (0.00-10.9); Hematocrit 29.3 VOL% (35.7-47.0); Hemoglobin 9.6 GM/DL (12.0-16.0); Immature Granulocytes % 0.9 %; Immature Granulocytes Absolute 0.07 #; Lymphocytes # 1.3 10*3/uL (1.4-4.0); Mean Corpuscular HGB Conc 32.8 GM/DL (32-36); Mean Corpuscular Hemoglobin 30 PG (27-34); Mean Corpuscular Volume 92.7 FL (87-102); Monocytes % 13.2 % (1.7-12.7); Neutrophils # 5.1 10*3/uL (1.4-7.4); Neutrophils % 68.2 % (38.7-73.9); Platelet Count 123 T/CUMM (130-400); Red Blood Count 3.16 MC/CUMM (3.8-5.5); Red Cell Distribution Width 18.7 % (9.3-17.3); White Blood Count 7.5 T/CUMM (4-12)
[2017-07-15 05:30] LABS: INR 2.2
[2017-07-15 05:33] LABS: Calcium 8.3 MG/DL (8.5-10.1); Potassium 3.5 MMOL/L (3.5-5.1)
[2017-07-15 05:36] LABS: PT Patient Result 22.1 SECS
[2017-07-15] MEDS: LEVOFLOXACIN INJ 500 MG in PREMIX 1 EACH IV SCH (06:08)
[2017-07-15] MEDS: ALBUTEROL/IPRATROPIUM 3 ML NEB RESP TX SCH ×4 (07:34→20:06)
[2017-07-15] MEDS ORDERED: ETOMIDATE 40 MG/20 ML VIAL IV ONE (10:29)
[2017-07-15] MEDS ORDERED: PROPOFOL 200 MG/20 ML VIAL IV ONE (10:29)
[2017-07-15] MEDS: FUROSEMIDE 40 MG TABLET PO SCH (11:24)
[2017-07-15] MEDS: PANTOPRAZOLE 40 MG TABLET PO SCH ×2 (11:24→17:10)
[2017-07-15] MEDS: CITALOPRAM 20 MG TABLET PO SCH (11:24)
[2017-07-15] MEDS: MONTELUKAST 10 MG TABLET PO SCH (11:24)
[2017-07-15] MEDS: POLYETHYLENE GLYCOL POWDER 17 GM PACK PO SCH (11:24)
[2017-07-15] MEDS: CHOLECALCIFEROL 1,000 UNIT TABLET PO SCH (11:25)
[2017-07-15] MEDS: POLYVINYL ALCOHOL 1.4% OPH SOLN 15 ML BOTTLE BOTH EYES SCH (11:25)
[2017-07-15] MEDS: METOPROLOL SUCCINATE XL 50 MG TABLET PO SCH ×2 (11:35→20:12)
[2017-07-15] MEDS: WARFARIN 4 MG TABLET PO SCH (17:09)
[2017-07-15] MEDS: OXYBUTYNIN XL 5 MG TABLET PO SCH (17:09)
[2017-07-15] MEDS: ISOSORBIDE MONONITRATE 30 MG TABLET PO SCH (17:10)
[2017-07-15] MEDS: DILTIAZEM CD 240 MG CAPSULE PO SCH ×2 (17:10→20:12)
[2017-07-15] MEDS: ASPIRIN EC 81 MG TABLET PO SCH (20:12)
[2017-07-15] MEDS: ISOSORBIDE MONONITRATE 60 MG TABLET PO SCH (20:12)
[2017-07-15] MEDS: THYROID 60 MG TABLET PO SCH (20:12)
[2017-07-15] MEDS: GABAPENTIN 300 MG CAPSULE PO SCH (20:12)
[2017-07-15] MEDS: METHOCARBAMOL 750 MG TABLET PO PRN (22:14)
[2017-07-16 05:49] LABS: Basophils % 0.5 % (0.0-0.8); Eosinophils % 0.7 % (0.00-10.9); Hematocrit 28.5 VOL% (35.7-47.0); Hemoglobin 9.2 GM/DL (12.0-16.0); Immature Granulocytes % 2.2 %; Immature Granulocytes Absolute 0.13 #; Lymphocytes # 1.1 10*3/uL (1.4-4.0); Lymphocytes % 18.6 % (21.3-54.2); Mean Corpuscular HGB Conc 32.3 GM/DL (32-36); Mean Corpuscular Hemoglobin 30 PG (27-34); Mean Corpuscular Volume 93.4 FL (87-102); Mean Platelet Volume 11.2 FL (9.6-12.0); Monocytes # 0.8 10*3/uL (0.11-0.8); Monocytes % 13.9 % (1.7-12.7); Neutrophils # 3.8 10*3/uL (1.4-7.4); Neutrophils % 64.1 % (38.7-73.9); Platelet Count 130 T/CUMM (130-400); Red Blood Count 3.05 MC/CUMM (3.8-5.5); Red Cell Distribution Width 18.7 % (9.3-17.3)
[2017-07-16 06:01] LABS: INR 2.2
[2017-07-16 06:07] LABS: Calcium 7.9 MG/DL (8.5-10.1); Osmolality,Calculated 275.8 MOS/KG (273-304); Potassium 3.2 MMOL/L (3.5-5.1)
[2017-07-16] MEDS: LEVOFLOXACIN INJ 500 MG in PREMIX 1 EACH IV SCH (06:24)
[2017-07-16 06:35] LABS: PT Patient Result 22.1 SECS
[2017-07-16] MEDS: ALBUTEROL/IPRATROPIUM 3 ML NEB RESP TX SCH ×4 (07:28→20:19)
[2017-07-16] MEDS: MONTELUKAST 10 MG TABLET PO SCH (09:39)
[2017-07-16] MEDS: POLYETHYLENE GLYCOL POWDER 17 GM PACK PO SCH (09:39)
[2017-07-16] MEDS: CHOLECALCIFEROL 1,000 UNIT TABLET PO SCH (09:40)
[2017-07-16] MEDS: FUROSEMIDE 40 MG TABLET PO SCH (09:40)
[2017-07-16] MEDS: CITALOPRAM 20 MG TABLET PO SCH (09:40)
[2017-07-16] MEDS: POLYVINYL ALCOHOL 1.4% OPH SOLN 15 ML BOTTLE BOTH EYES SCH (09:41)
[2017-07-16] MEDS: ISOSORBIDE MONONITRATE 30 MG TABLET PO SCH (09:42)
[2017-07-16] MEDS: DILTIAZEM CD 240 MG CAPSULE PO SCH ×2 (09:42→20:00)
[2017-07-16] MEDS: METOPROLOL SUCCINATE XL 50 MG TABLET PO SCH ×2 (09:42→20:01)
[2017-07-16] MEDS: PANTOPRAZOLE 40 MG TABLET PO SCH ×2 (09:45→17:00)
[2017-07-16] MEDS: WARFARIN 4 MG TABLET PO SCH (17:00)
[2017-07-16] MEDS: OXYBUTYNIN XL 5 MG TABLET PO SCH (17:00)
[2017-07-16] MEDS: POTASSIUM CHLORIDE 20 MEQ TABLET PO SCH ×2 (17:00→20:01)
[2017-07-16] MEDS: GABAPENTIN 300 MG CAPSULE PO SCH (20:00)
[2017-07-16] MEDS: THYROID 60 MG TABLET PO SCH (20:00)
[2017-07-16] MEDS: METHOCARBAMOL 750 MG TABLET PO PRN (20:00)
[2017-07-16] MEDS: ISOSORBIDE MONONITRATE 60 MG TABLET PO SCH (20:00)
[2017-07-16] MEDS: ASPIRIN EC 81 MG TABLET PO SCH (20:01)
[2017-07-17] MEDS: POTASSIUM CHLORIDE 20 MEQ TABLET PO SCH
[2017-07-17 06:00] LABS: INR 2.4
[2017-07-17 06:01] LABS: PT Patient Result 24.1 SECS
[2017-07-17] MEDS: ALBUTEROL/IPRATROPIUM 3 ML NEB RESP TX SCH ×4 (07:19→20:12)
[2017-07-17] MEDS: LEVOFLOXACIN 500 MG TABLET PO SCH (07:31)
[2017-07-17] MEDS: PANTOPRAZOLE 40 MG TABLET PO SCH ×2 (07:33→17:09)
[2017-07-17] MEDS: CITALOPRAM 20 MG TABLET PO SCH (13:21)
[2017-07-17] MEDS: POLYETHYLENE GLYCOL POWDER 17 GM PACK PO SCH (13:21)
[2017-07-17] MEDS: FUROSEMIDE 40 MG TABLET PO SCH (13:21)
[2017-07-17] MEDS: DILTIAZEM CD 240 MG CAPSULE PO SCH ×2 (13:21→20:59)
[2017-07-17] MEDS: CHOLECALCIFEROL 1,000 UNIT TABLET PO SCH (13:21)
[2017-07-17] MEDS: ISOSORBIDE MONONITRATE 30 MG TABLET PO SCH (13:21)
[2017-07-17] MEDS: OXYBUTYNIN XL 5 MG TABLET PO SCH (13:22)
[2017-07-17] MEDS: MONTELUKAST 10 MG TABLET PO SCH (13:22)
[2017-07-17] MEDS: POLYVINYL ALCOHOL 1.4% OPH SOLN 15 ML BOTTLE BOTH EYES SCH (13:22)
[2017-07-17] MEDS: METOPROLOL SUCCINATE XL 50 MG TABLET PO SCH ×2 (13:22→20:59)
[2017-07-17] MEDS: POTASSIUM CHLORIDE 10 MEQ TABLET PO SCH ×2 (13:23→21:03)
[2017-07-17] MEDS: ACETAMINOPHEN 325 MG TABLET PO PRN ×2 (14:37→23:06)
[2017-07-17] MEDS: WARFARIN 4 MG TABLET PO SCH (17:09)
[2017-07-17] MEDS: THYROID 60 MG TABLET PO SCH (20:57)
[2017-07-17] MEDS: ISOSORBIDE MONONITRATE 60 MG TABLET PO SCH (20:59)
[2017-07-17] MEDS: GABAPENTIN 300 MG CAPSULE PO SCH (20:59)
[2017-07-17] MEDS: ASPIRIN EC 81 MG TABLET PO SCH (20:59)
[2017-07-18 05:06] LABS: Basophils % 0.5 % (0.0-0.8); Eosinophils # 0.1 10*3/uL (0.0-0.87); Hematocrit 31.4 VOL% (35.7-47.0); Hemoglobin 9.8 GM/DL (12.0-16.0); Immature Granulocytes Absolute 0.31 #; Lymphocytes # 1.4 10*3/uL (1.4-4.0); Lymphocytes % 23.2 % (21.3-54.2); Mean Corpuscular HGB Conc 31.2 GM/DL (32-36); Mean Corpuscular Hemoglobin 30 PG (27-34); Mean Corpuscular Volume 96.9 FL (87-102); Mean Platelet Volume 10.8 FL (9.6-12.0); Monocytes # 0.9 10*3/uL (0.11-0.8); Monocytes % 15.1 % (1.7-12.7); Neutrophils # 3.4 10*3/uL (1.4-7.4); Neutrophils % 55.2 % (38.7-73.9); Platelet Count 156 T/CUMM (130-400); Red Blood Count 3.24 MC/CUMM (3.8-5.5); Red Cell Distribution Width 19.1 % (9.3-17.3); White Blood Count 6.2 T/CUMM (4-12)
[2017-07-18 05:27] LABS: PT Patient Result 20.7 SECS
[2017-07-18] MEDS: ALBUTEROL/IPRATROPIUM 3 ML NEB RESP TX SCH ×4 (07:30→19:17)
[2017-07-18] MEDS ORDERED: WARFARIN 7.5 MG TABLET PO ONE (08:42)
[2017-07-18] MEDS: CHOLECALCIFEROL 1,000 UNIT TABLET PO SCH (12:36)
[2017-07-18] MEDS: MONTELUKAST 10 MG TABLET PO SCH (12:37)
[2017-07-18] MEDS: FUROSEMIDE 40 MG TABLET PO SCH (12:37)
[2017-07-18] MEDS: METOPROLOL SUCCINATE XL 50 MG TABLET PO SCH ×2 (12:37→21:12)
[2017-07-18] MEDS: LEVOFLOXACIN 500 MG TABLET PO SCH (12:38)
[2017-07-18] MEDS: DILTIAZEM CD 240 MG CAPSULE PO SCH ×2 (12:38→21:12)
[2017-07-18] MEDS: ISOSORBIDE MONONITRATE 30 MG TABLET PO SCH (12:38)
[2017-07-18] MEDS: POTASSIUM CHLORIDE 10 MEQ TABLET PO SCH ×2 (12:38→21:12)
[2017-07-18] MEDS: PANTOPRAZOLE 40 MG TABLET PO SCH ×2 (12:39→21:26)
[2017-07-18] MEDS: POLYETHYLENE GLYCOL POWDER 17 GM PACK PO SCH (12:50)
[2017-07-18] MEDS: CITALOPRAM 20 MG TABLET PO SCH (12:50)
[2017-07-18] MEDS: OXYBUTYNIN XL 5 MG TABLET PO SCH (14:17)
[2017-07-18] MEDS: ISOSORBIDE MONONITRATE 60 MG TABLET PO SCH (21:12)
[2017-07-18] MEDS: GABAPENTIN 300 MG CAPSULE PO SCH (21:12)
[2017-07-18] MEDS: ASPIRIN EC 81 MG TABLET PO SCH (21:12)
[2017-07-18] MEDS: THYROID 60 MG TABLET PO SCH (21:13)
[2017-07-18] MEDS: ACETAMINOPHEN 325 MG TABLET PO PRN (21:26)
[2017-07-19] MEDS: METHOCARBAMOL 750 MG TABLET PO PRN (01:36)
[2017-07-19 06:42] LABS: Basophils % 0.5 % (0.0-0.8); Eosinophils % 0.7 % (0.00-10.9); Hematocrit 31.3 VOL% (35.7-47.0); Immature Granulocytes % 5.6 %; Immature Granulocytes Absolute 0.34 #; Lymphocytes # 1.1 10*3/uL (1.4-4.0); Lymphocytes % 18.2 % (21.3-54.2); Mean Corpuscular HGB Conc 31.9 GM/DL (32-36); Mean Corpuscular Hemoglobin 31 PG (27-34); Mean Platelet Volume 10.7 FL (9.6-12.0); Monocytes # 0.9 10*3/uL (0.11-0.8); Neutrophils # 3.7 10*3/uL (1.4-7.4); Platelet Count 193 T/CUMM (130-400); Red Blood Count 3.26 MC/CUMM (3.8-5.5); Red Cell Distribution Width 19.3 % (9.3-17.3); White Blood Count 6.1 T/CUMM (4-12)
[2017-07-19 06:56] LABS: INR 2.1
[2017-07-19 06:58] LABS: PT Patient Result 21.7 SECS
[2017-07-19 07:05] LABS: Band Neutrophils 1 % (0-10); Calcium 8.1 MG/DL (8.5-10.1); Eosinophils 2 % (0-10); Giant Platelets Few; Hypochromasia 1+; Lymphocytes 20 % (20-55); Osmolality,Calculated 273.7 MOS/KG (273-304); Ovalocytes Slight; Platelet Estimate Adequate; Segmented Neutrophils 64 % (50-85); Total Cells Counted 100
[2017-07-19] MEDS: ALBUTEROL/IPRATROPIUM 3 ML NEB RESP TX SCH ×4 (07:22→19:22)
[2017-07-19] MEDS: POLYETHYLENE GLYCOL POWDER 17 GM PACK PO SCH (08:38)
[2017-07-19] MEDS: PANTOPRAZOLE 40 MG TABLET PO SCH ×2 (08:38→17:19)
[2017-07-19] MEDS: POTASSIUM CHLORIDE 10 MEQ TABLET PO SCH ×2 (08:39→21:30)
[2017-07-19] MEDS: ISOSORBIDE MONONITRATE 30 MG TABLET PO SCH (08:39)
[2017-07-19] MEDS: DILTIAZEM CD 240 MG CAPSULE PO SCH ×2 (08:39→21:27)
[2017-07-19] MEDS: FUROSEMIDE 40 MG TABLET PO SCH (08:39)
[2017-07-19] MEDS: CHOLECALCIFEROL 1,000 UNIT TABLET PO SCH (08:39)
[2017-07-19] MEDS: MONTELUKAST 10 MG TABLET PO SCH (08:39)
[2017-07-19] MEDS: CITALOPRAM 20 MG TABLET PO SCH (08:39)
[2017-07-19] MEDS: METOPROLOL SUCCINATE XL 50 MG TABLET PO SCH ×2 (08:39→21:27)
[2017-07-19] MEDS: OXYBUTYNIN XL 5 MG TABLET PO SCH ×2 (08:40→11:39)
[2017-07-19] MEDS: POLYVINYL ALCOHOL 1.4% OPH SOLN 15 ML BOTTLE BOTH EYES SCH ×2 (08:43→08:44)
[2017-07-19] MEDS ORDERED: ROSUVASTATIN 20 MG TABLET PO SCH (09:00)
[2017-07-19] MEDS: LEVOFLOXACIN 500 MG TABLET PO SCH (11:39)
[2017-07-19] MEDS: MAGNESIUM HYDROXIDE SUSP 30 ML UDCUP PO ONE ×2 (17:19→17:21)
[2017-07-19] MEDS: WARFARIN 5 MG TABLET PO SCH (17:19)
[2017-07-19] MEDS: ACETAMINOPHEN 325 MG TABLET PO PRN (21:26)
[2017-07-19] MEDS: ISOSORBIDE MONONITRATE 60 MG TABLET PO SCH (21:27)
[2017-07-19] MEDS: ASPIRIN EC 81 MG TABLET PO SCH (21:27)
[2017-07-19] MEDS: GABAPENTIN 300 MG CAPSULE PO SCH (21:28)
[2017-07-19] MEDS: THYROID 60 MG TABLET PO SCH (21:29)
[2017-07-20] MEDS: ACETAMINOPHEN 325 MG TABLET PO PRN ×2 (05:34→20:39)
[2017-07-20 07:10] LABS: INR 2.3
[2017-07-20 07:19] LABS: PT Patient Result 23.7 SECS
[2017-07-20 07:20] LABS: Calcium 8.1 MG/DL (8.5-10.1); Osmolality,Calculated 277.5 MOS/KG (273-304)
[2017-07-20] MEDS: ALBUTEROL/IPRATROPIUM 3 ML NEB RESP TX SCH ×4 (07:39→20:17)
[2017-07-20 08:24] LABS: Basophils % 0.3 % (0.0-0.8); Eosinophils # 0.1 10*3/uL (0.0-0.87); Hematocrit 28.8 VOL% (35.7-47.0); Hemoglobin 9.4 GM/DL (12.0-16.0); Immature Granulocytes % 4.3 %; Immature Granulocytes Absolute 0.29 #; Lymphocytes # 1.2 10*3/uL (1.4-4.0); Lymphocytes % 17.7 % (21.3-54.2); Mean Corpuscular HGB Conc 32.6 GM/DL (32-36); Mean Corpuscular Hemoglobin 30 PG (27-34); Mean Corpuscular Volume 93.2 FL (87-102); Mean Platelet Volume 10.5 FL (9.6-12.0); Monocytes % 14.2 % (1.7-12.7); Neutrophils # 4.3 10*3/uL (1.4-7.4); Neutrophils % 62.5 % (38.7-73.9); Platelet Count 213 T/CUMM (130-400); Red Blood Count 3.09 MC/CUMM (3.8-5.5); Red Cell Distribution Width 19.1 % (9.3-17.3); White Blood Count 6.8 T/CUMM (4-12)
[2017-07-20] MEDS: MONTELUKAST 10 MG TABLET PO SCH (08:50)
[2017-07-20] MEDS: CHOLECALCIFEROL 1,000 UNIT TABLET PO SCH (08:50)
[2017-07-20] MEDS: POLYETHYLENE GLYCOL POWDER 17 GM PACK PO SCH (08:50)
[2017-07-20] MEDS: OXYBUTYNIN XL 5 MG TABLET PO SCH (08:51)
[2017-07-20] MEDS: POLYVINYL ALCOHOL 1.4% OPH SOLN 15 ML BOTTLE BOTH EYES SCH (08:51)
[2017-07-20] MEDS: FUROSEMIDE 40 MG TABLET PO SCH (08:51)
[2017-07-20] MEDS: POTASSIUM CHLORIDE 10 MEQ TABLET PO SCH ×2 (08:51→20:30)
[2017-07-20] MEDS: LEVOFLOXACIN 500 MG TABLET PO SCH (08:51)
[2017-07-20] MEDS: CITALOPRAM 20 MG TABLET PO SCH (08:51)
[2017-07-20] MEDS: PANTOPRAZOLE 40 MG TABLET PO SCH ×2 (08:51→17:21)
[2017-07-20] MEDS: ISOSORBIDE MONONITRATE 30 MG TABLET PO SCH (08:52)
[2017-07-20] MEDS: DILTIAZEM CD 240 MG CAPSULE PO SCH ×2 (08:52→20:31)
[2017-07-20] MEDS: METOPROLOL SUCCINATE XL 50 MG TABLET PO SCH ×2 (08:52→20:31)
[2017-07-20] MEDS: WARFARIN 5 MG TABLET PO SCH (17:21)
[2017-07-20] MEDS: ISOSORBIDE MONONITRATE 60 MG TABLET PO SCH (20:30)
[2017-07-20] MEDS: THYROID 60 MG TABLET PO SCH (20:31)
[2017-07-20] MEDS: GABAPENTIN 300 MG CAPSULE PO SCH (20:31)
[2017-07-20] MEDS: ASPIRIN EC 81 MG TABLET PO SCH (20:32)
[2017-07-20] MEDS: guaiFENesin 200 MG/10 ML UDCUP PO PRN (20:32)
[2017-07-21] MEDS: METHOCARBAMOL 750 MG TABLET PO PRN (00:01)
[2017-07-21] MEDS: guaiFENesin 200 MG/10 ML UDCUP PO PRN (00:01)
[2017-07-21] MEDS: ACETAMINOPHEN 325 MG TABLET PO PRN (00:01)
[2017-07-21 07:13] LABS: Basophils % 0.3 % (0.0-0.8); Eosinophils # 0.1 10*3/uL (0.0-0.87); Eosinophils % 0.8 % (0.00-10.9); Hematocrit 29.8 VOL% (35.7-47.0); Hemoglobin 9.3 GM/DL (12.0-16.0); Immature Granulocytes % 3.1 %; Lymphocytes # 1.2 10*3/uL (1.4-4.0); Lymphocytes % 17.9 % (21.3-54.2); Mean Corpuscular HGB Conc 31.2 GM/DL (32-36); Mean Corpuscular Hemoglobin 30 PG (27-34); Mean Corpuscular Volume 97.1 FL (87-102); Mean Platelet Volume 10.6 FL (9.6-12.0); Monocytes # 0.9 10*3/uL (0.11-0.8); Monocytes % 14.6 % (1.7-12.7); Neutrophils # 4.1 10*3/uL (1.4-7.4); Neutrophils % 63.3 % (38.7-73.9); Platelet Count 216 T/CUMM (130-400); Red Blood Count 3.07 MC/CUMM (3.8-5.5); Red Cell Distribution Width 19.1 % (9.3-17.3); White Blood Count 6.4 T/CUMM (4-12)
[2017-07-21 07:32] LABS: INR 2.6; PT Patient Result 26.8 SECS
[2017-07-21 07:41] LABS: Calcium 8.2 MG/DL (8.5-10.1); Osmolality,Calculated 278.3 MOS/KG (273-304); Potassium 4.3 MMOL/L (3.5-5.1)
[2017-07-21] MEDS: ALBUTEROL/IPRATROPIUM 3 ML NEB RESP TX SCH ×3 (07:45→15:44)
[2017-07-21] MEDS: POTASSIUM CHLORIDE 10 MEQ TABLET PO SCH (08:53)
[2017-07-21] MEDS: POLYETHYLENE GLYCOL POWDER 17 GM PACK PO SCH (08:53)
[2017-07-21] MEDS: CITALOPRAM 20 MG TABLET PO SCH (08:53)
[2017-07-21] MEDS: LEVOFLOXACIN 500 MG TABLET PO SCH (08:53)
[2017-07-21] MEDS: PANTOPRAZOLE 40 MG TABLET PO SCH (08:53)
[2017-07-21] MEDS: FUROSEMIDE 40 MG TABLET PO SCH (08:53)
[2017-07-21] MEDS: MONTELUKAST 10 MG TABLET PO SCH (08:53)
[2017-07-21] MEDS: ISOSORBIDE MONONITRATE 30 MG TABLET PO SCH (08:53)
[2017-07-21] MEDS: CHOLECALCIFEROL 1,000 UNIT TABLET PO SCH (08:53)
[2017-07-21] MEDS: POLYVINYL ALCOHOL 1.4% OPH SOLN 15 ML BOTTLE BOTH EYES SCH (08:54)
[2017-07-21] MEDS: METOPROLOL SUCCINATE XL 50 MG TABLET PO SCH (08:54)
[2017-07-21] MEDS: OXYBUTYNIN XL 5 MG TABLET PO SCH (08:54)
[2017-07-21] MEDS: DILTIAZEM CD 240 MG CAPSULE PO SCH (08:54)
[2017-07-21 16:47] VITALS: BP 100/60
== END 2017-07-21 16:47 | disposition home health service (06) | DRG 177 ==
LOC: N.ED 15:41 → SUATTDRO 07-12 01:59 → N.EDINP 07-12 01:59 → N.CC 07-12 06:21 → N.5E 07-17 15:26
PROVIDERS: ADMIT Internal Medicine; ATTEND Internal Medicine Geriatric Medicine

== ENCOUNTER 2017-07-26 15:43 | Inpatient (IN) ==
[2017-07-26] MEDS ORDERED: ONDANSETRON 4 MG/2 ML VIAL IV STA (18:00)
[2017-07-26] MEDS ORDERED: ALBUTEROL 2.5 MG/3 ML NEB RESP TX SCH (18:00)
[2017-07-26] MEDS ORDERED: FUROSEMIDE 100 MG/10 ML VIAL IV STA (18:00)
[2017-07-26] MEDS ORDERED: cefTRIAXone 1,000 MG in SODIUM CHLORIDE 0.9% 100 ML IV STA (18:00)
[2017-07-26] MEDS ORDERED: FUROSEMIDE 100 MG/10 ML VIAL ONE (18:10)
[2017-07-26] MEDS ORDERED: ONDANSETRON 4 MG/2 ML VIAL ONE (18:10)
[2017-07-26] MEDS ORDERED: cefTRIAXone 1,000 MG VIAL ONE (18:10)
[2017-07-26 18:36] LABS: Basophils % 0.1 % (0.0-0.8); Hemoglobin 10.2 GM/DL (12.0-16.0); Immature Granulocytes % 1.5 %; Immature Granulocytes Absolute 0.15 #; Lymphocytes # 0.7 10*3/uL (1.4-4.0); Mean Corpuscular HGB Conc 31.9 GM/DL (32-36); Mean Corpuscular Hemoglobin 30 PG (27-34); Mean Corpuscular Volume 94.7 FL (87-102); Mean Platelet Volume 10.2 FL (9.6-12.0); Monocytes # 0.8 10*3/uL (0.11-0.8); Monocytes % 7.8 % (1.7-12.7); NRBC # 0.02 10*3/uL; Neutrophils # 8.5 10*3/uL (1.4-7.4); Neutrophils % 83.6 % (38.7-73.9); Platelet Count 244 T/CUMM (130-400); Red Blood Count 3.38 MC/CUMM (3.8-5.5); Red Cell Distribution Width 19.3 % (9.3-17.3); White Blood Count 10.1 T/CUMM (4-12)
[2017-07-26 18:39] LABS: Apearance,Urine CLEAR (Clear); Bilirubin,Urine Negative (Negative); Blood, Urine Negative (Negative); Glucose,Urine (UA) Negative (Negative); Ketones,Urine Negative (Negative); Mucus,Urine Occasional /LPF (Occasional); Nitrite,Urine Negative (Negative); Protein,Urine 30 MG/DL; RBC,Urine <1 /HPF (0-4); Urine Color Yellow (Yellow); Urine Specific Gravity 1.013 (1.001-1.035); WBC,Urine <1 /HPF (0-6)
[2017-07-26 18:53] LABS: Albumin 2.7 G/DL (3.4-5.0); Bilirubin,Total 0.7 MG/DL (0.2-1.0); Calcium 8.4 MG/DL (8.5-10.1); Total Protein 6.9 G/DL (6.4-8.3)
[2017-07-26 18:54] LABS: Osmolality,Calculated 277.5 MOS/KG (273-304); Potassium 3.4 MMOL/L (3.5-5.1)
[2017-07-26 18:55] LABS: Lactic Acid 0.9 MMOL/L (0.4-2.0)
[2017-07-26 18:56] LABS: INR 1.7
[2017-07-26] MEDS ORDERED: MAGNESIUM SULF RIDER 2 GM in PREMIX 1 EACH IV PRN (19:51)
[2017-07-26] MEDS ORDERED: MAGNESIUM SULF RIDER 4 GM in PREMIX 1 EACH IV PRN (19:51)
[2017-07-26] MEDS ORDERED: ONDANSETRON 4 MG/2 ML VIAL IV PRN (20:08)
[2017-07-26] MEDS ORDERED: CETIRIZINE 10 MG TABLET PO PRN (20:09)
[2017-07-26] MEDS ORDERED: METHOCARBAMOL 750 MG TABLET PO PRN (20:09)
[2017-07-26] MEDS ORDERED: WARFARIN 1 MG TABLET PO ONE (20:43)
[2017-07-26] MEDS ORDERED: POTASSIUM CHLORIDE 20 MEQ TABLET PO PRN (20:43)
[2017-07-26] MEDS ORDERED: ROSUVASTATIN 20 MG TABLET PO SCH (21:00)
[2017-07-26] MEDS ORDERED: LEVOFLOXACIN 500 MG TABLET PO SCH (21:00)
[2017-07-26] MEDS ORDERED: POLYVINYL ALCOHOL 1.4% OPH SOLN 15 ML BOTTLE BOTH EYES SCH (21:30)
[2017-07-26] MEDS: DILTIAZEM CD 240 MG CAPSULE PO SCH (22:29)
[2017-07-26] MEDS: THYROID 60 MG TABLET PO SCH (22:29)
[2017-07-26] MEDS: ASPIRIN EC 81 MG TABLET PO SCH (22:29)
[2017-07-26] MEDS: ISOSORBIDE MONONITRATE 60 MG TABLET PO SCH (22:34)
[2017-07-26] MEDS: PIPERACILLIN/TAZOBACTAM 3,375 MG in SODIUM CHLORIDE 0.9% 100 ML IV SCH (22:34)
[2017-07-26] MEDS: GABAPENTIN 300 MG CAPSULE PO SCH (22:34)
[2017-07-26] MEDS: CARBOXYMETHYLCELLULOSE 1% OPH SOLN BOTH EYES SCH (22:35)
[2017-07-27] MEDS ORDERED: ALBUTEROL 2.5 MG/3 ML NEB RESP TX PRN ×2 (01:00→17:47)
[2017-07-27] MEDS ORDERED: ALBUTEROL/IPRATROPIUM 3 ML NEB RESP TX SCH (01:00)
[2017-07-27] MEDS: PIPERACILLIN/TAZOBACTAM 3,375 MG in SODIUM CHLORIDE 0.9% 100 ML IV SCH ×3 (06:20→20:40)
[2017-07-27 07:11] LABS: Basophils % 0.2 % (0.0-0.8); Eosinophils % 0.3 % (0.00-10.9); Hematocrit 28.7 VOL% (35.7-47.0); Hemoglobin 9.1 GM/DL (12.0-16.0); Immature Granulocytes % 1.4 %; Immature Granulocytes Absolute 0.15 #; Lymphocytes # 1.1 10*3/uL (1.4-4.0); Lymphocytes % 10.6 % (21.3-54.2); Mean Corpuscular HGB Conc 31.7 GM/DL (32-36); Mean Corpuscular Hemoglobin 30 PG (27-34); Mean Platelet Volume 10.3 FL (9.6-12.0); Monocytes # 1.4 10*3/uL (0.11-0.8); Monocytes % 13.3 % (1.7-12.7); NRBC # 0.02 10*3/uL; Neutrophils # 7.8 10*3/uL (1.4-7.4); Neutrophils % 74.2 % (38.7-73.9); Platelet Count 230 T/CUMM (130-400); Red Blood Count 2.99 MC/CUMM (3.8-5.5); Red Cell Distribution Width 19.5 % (9.3-17.3); White Blood Count 10.5 T/CUMM (4-12)
[2017-07-27 07:40] LABS: Albumin 2.5 G/DL (3.4-5.0); Bilirubin,Total 0.6 MG/DL (0.2-1.0); Calcium 8.1 MG/DL (8.5-10.1); Osmolality,Calculated 277.4 MOS/KG (273-304); Total Protein 5.4 G/DL (6.4-8.3)
[2017-07-27 07:54] LABS: INR 1.5; PT Patient Result 15.3 SECS
[2017-07-27] MEDS ORDERED: WARFARIN 2 MG TABLET PO SCH (09:00)
[2017-07-27] MEDS ORDERED: CARBOXYMETHYLCELLULOSE 1% OPH SOLN BOTH EYES SCH (09:00)
[2017-07-27] MEDS ORDERED: Fluticasone/Vilanterol [Breo Ellipta 100-25 Mcg Inh] INH SCH (09:00)
[2017-07-27] MEDS ORDERED: WARFARIN 4 MG TABLET PO SCH (09:00)
[2017-07-27] MEDS: FUROSEMIDE 40 MG/4 ML VIAL IV SCH ×2 (09:53→17:24)
[2017-07-27] MEDS: DILTIAZEM CD 240 MG CAPSULE PO SCH ×2 (09:54→20:42)
[2017-07-27] MEDS: CHOLECALCIFEROL 1,000 UNIT TABLET PO SCH (09:54)
[2017-07-27] MEDS: MONTELUKAST 10 MG TABLET PO SCH (09:54)
[2017-07-27] MEDS: CITALOPRAM 20 MG TABLET PO SCH (09:54)
[2017-07-27] MEDS: OXYBUTYNIN XL 5 MG TABLET PO SCH (09:54)
[2017-07-27] MEDS: PANTOPRAZOLE 40 MG TABLET PO SCH ×2 (09:55→17:24)
[2017-07-27] MEDS: POLYETHYLENE GLYCOL POWDER 17 GM PACK PO SCH (09:55)
[2017-07-27] MEDS: ISOSORBIDE MONONITRATE 30 MG TABLET PO SCH (09:55)
[2017-07-27] MEDS: CARBOXYMETHYLCELLULOSE 1% OPH SOLN BOTH EYES SCH ×2 (09:55→20:46)
[2017-07-27] MEDS: predniSONE 10 MG TABLET PO SCH (09:55)
[2017-07-27] MEDS ORDERED: POTASSIUM CHLORIDE 20 MEQ TABLET PO ONE (16:59)
[2017-07-27] MEDS: ENOXAPARIN 60 MG/0.6 ML SYRINGE SUBCUT SCH (17:23)
[2017-07-27] MEDS ORDERED: ALBUTEROL 2.5 MG/3 ML NEB RESP TX STA (17:49)
[2017-07-27] MEDS ORDERED: WARFARIN 1 MG TABLET PO SCH (18:00)
[2017-07-27] MEDS: THYROID 60 MG TABLET PO SCH (20:41)
[2017-07-27] MEDS: SKIN HEALING OINT (AQUAPHOR) 50 GM TUBE TOP SCH (20:41)
[2017-07-27] MEDS: GABAPENTIN 300 MG CAPSULE PO SCH (20:41)
[2017-07-27] MEDS: ISOSORBIDE MONONITRATE 60 MG TABLET PO SCH (20:42)
[2017-07-27] MEDS: ASPIRIN EC 81 MG TABLET PO SCH (20:42)
[2017-07-27] MEDS: ALBUTEROL/IPRATROPIUM 3 ML NEB RESP TX SCH (23:42)
[2017-07-28] MEDS: PIPERACILLIN/TAZOBACTAM 3,375 MG in SODIUM CHLORIDE 0.9% 100 ML IV SCH ×2 (05:32→14:00)
[2017-07-28] MEDS: ENOXAPARIN 60 MG/0.6 ML SYRINGE SUBCUT SCH ×2 (05:32→20:44)
[2017-07-28] MEDS: ALBUTEROL/IPRATROPIUM 3 ML NEB RESP TX SCH ×2 (06:53→14:14)
[2017-07-28] MEDS: predniSONE 10 MG TABLET PO SCH (09:02)
[2017-07-28] MEDS: POTASSIUM CHLORIDE 20 MEQ TABLET PO SCH (09:02)
[2017-07-28] MEDS: CITALOPRAM 20 MG TABLET PO SCH (09:02)
[2017-07-28] MEDS: CHOLECALCIFEROL 1,000 UNIT TABLET PO SCH (09:02)
[2017-07-28] MEDS: FUROSEMIDE 40 MG/4 ML VIAL IV SCH ×2 (09:02→16:58)
[2017-07-28] MEDS: POLYETHYLENE GLYCOL POWDER 17 GM PACK PO SCH (09:02)
[2017-07-28] MEDS: MONTELUKAST 10 MG TABLET PO SCH (09:03)
[2017-07-28] MEDS: ISOSORBIDE MONONITRATE 30 MG TABLET PO SCH (09:03)
[2017-07-28] MEDS: OXYBUTYNIN XL 5 MG TABLET PO SCH (09:03)
[2017-07-28] MEDS: PANTOPRAZOLE 40 MG TABLET PO SCH ×2 (09:03→16:58)
[2017-07-28] MEDS: DILTIAZEM CD 240 MG CAPSULE PO SCH ×2 (09:03→20:44)
[2017-07-28] MEDS: CARBOXYMETHYLCELLULOSE 1% OPH SOLN BOTH EYES SCH ×2 (09:03→20:41)
[2017-07-28] MEDS: SKIN HEALING OINT (AQUAPHOR) 50 GM TUBE TOP SCH ×2 (09:03→20:39)
[2017-07-28 14:13] LABS: Calcium 8.4 MG/DL (8.5-10.1); Osmolality,Calculated 281.8 MOS/KG (273-304); Potassium 3.9 MMOL/L (3.5-5.1)
[2017-07-28] MEDS: WARFARIN 4 MG TABLET PO SCH (17:06)
[2017-07-28] MEDS: guaiFENesin 200 MG/10 ML UDCUP PO PRN (20:42)
[2017-07-28] MEDS: GABAPENTIN 300 MG CAPSULE PO SCH (20:43)
[2017-07-28] MEDS: ISOSORBIDE MONONITRATE 60 MG TABLET PO SCH (20:44)
[2017-07-28] MEDS: ASPIRIN EC 81 MG TABLET PO SCH (20:44)
[2017-07-28] MEDS: THYROID 60 MG TABLET PO SCH (20:44)
[2017-07-28] MEDS: ZALEPLON 5 MG CAPSULE PO PRN (23:56)
[2017-07-29] MEDS: ALBUTEROL/IPRATROPIUM 3 ML NEB RESP TX SCH ×3 (00:08→15:20)
[2017-07-29 06:02] LABS: Basophils % 0.1 % (0.0-0.8); Eosinophils # 0.1 10*3/uL (0.0-0.87); Eosinophils % 0.7 % (0.00-10.9); Hematocrit 30.6 VOL% (35.7-47.0); Hemoglobin 9.8 GM/DL (12.0-16.0); Immature Granulocytes % 1.3 %; Immature Granulocytes Absolute 0.14 #; Lymphocytes # 1.5 10*3/uL (1.4-4.0); Lymphocytes % 13.7 % (21.3-54.2); Mean Corpuscular Hemoglobin 30 PG (27-34); Mean Corpuscular Volume 94.4 FL (87-102); Mean Platelet Volume 10.5 FL (9.6-12.0); Monocytes # 1.4 10*3/uL (0.11-0.8); Monocytes % 12.9 % (1.7-12.7); Neutrophils # 7.9 10*3/uL (1.4-7.4); Neutrophils % 71.3 % (38.7-73.9); Platelet Count 233 T/CUMM (130-400); Red Blood Count 3.24 MC/CUMM (3.8-5.5); White Blood Count 11.1 T/CUMM (4-12)
[2017-07-29 06:07] LABS: INR 1.8; PT Patient Result 18.4 SECS
[2017-07-29 06:15] LABS: Calcium 8.6 MG/DL (8.5-10.1); Potassium 3.5 MMOL/L (3.5-5.1)
[2017-07-29] MEDS: SKIN HEALING OINT (AQUAPHOR) 50 GM TUBE TOP SCH ×2 (08:32→21:06)
[2017-07-29] MEDS: FUROSEMIDE 40 MG/4 ML VIAL IV SCH ×2 (08:32→17:36)
[2017-07-29] MEDS: DILTIAZEM CD 240 MG CAPSULE PO SCH ×2 (08:33→21:19)
[2017-07-29] MEDS: CITALOPRAM 20 MG TABLET PO SCH (08:33)
[2017-07-29] MEDS: CHOLECALCIFEROL 1,000 UNIT TABLET PO SCH (08:33)
[2017-07-29] MEDS: ISOSORBIDE MONONITRATE 30 MG TABLET PO SCH (08:34)
[2017-07-29] MEDS: MONTELUKAST 10 MG TABLET PO SCH (08:34)
[2017-07-29] MEDS: PANTOPRAZOLE 40 MG TABLET PO SCH ×2 (08:34→17:36)
[2017-07-29] MEDS: ENOXAPARIN 60 MG/0.6 ML SYRINGE SUBCUT SCH ×2 (08:34→21:04)
[2017-07-29] MEDS: predniSONE 10 MG TABLET PO SCH (08:34)
[2017-07-29] MEDS: OXYBUTYNIN XL 5 MG TABLET PO SCH (08:34)
[2017-07-29] MEDS: POTASSIUM CHLORIDE 20 MEQ TABLET PO SCH (08:34)
[2017-07-29] MEDS: POLYETHYLENE GLYCOL POWDER 17 GM PACK PO SCH (08:34)
[2017-07-29] MEDS: CARBOXYMETHYLCELLULOSE 1% OPH SOLN BOTH EYES SCH ×2 (08:34→21:06)
[2017-07-29] MEDS: WARFARIN 4 MG TABLET PO SCH (17:36)
[2017-07-29] MEDS: ISOSORBIDE MONONITRATE 60 MG TABLET PO SCH (21:05)
[2017-07-29] MEDS: THYROID 60 MG TABLET PO SCH (21:05)
[2017-07-29] MEDS: GABAPENTIN 300 MG CAPSULE PO SCH (21:05)
[2017-07-29] MEDS: ASPIRIN EC 81 MG TABLET PO SCH (21:05)
[2017-07-29] MEDS: guaiFENesin 200 MG/10 ML UDCUP PO PRN (21:07)
[2017-07-30] MEDS: ALBUTEROL/IPRATROPIUM 3 ML NEB RESP TX SCH ×4 (00:02→23:04)
[2017-07-30 09:05] LABS: Basophils % 0.2 % (0.0-0.8); Eosinophils # 0.1 10*3/uL (0.0-0.87); Eosinophils % 0.9 % (0.00-10.9); Hematocrit 32.3 VOL% (35.7-47.0); Hemoglobin 10.1 GM/DL (12.0-16.0); Immature Granulocytes % 1.6 %; Immature Granulocytes Absolute 0.19 #; Lymphocytes # 1.8 10*3/uL (1.4-4.0); Lymphocytes % 14.6 % (21.3-54.2); Mean Corpuscular HGB Conc 31.3 GM/DL (32-36); Mean Corpuscular Hemoglobin 31 PG (27-34); Mean Corpuscular Volume 97.6 FL (87-102); Mean Platelet Volume 9.5 FL (9.6-12.0); Monocytes # 1.5 10*3/uL (0.11-0.8); Monocytes % 12.1 % (1.7-12.7); Neutrophils # 8.5 10*3/uL (1.4-7.4); Neutrophils % 70.6 % (38.7-73.9); Platelet Count 235 T/CUMM (130-400); Red Blood Count 3.31 MC/CUMM (3.8-5.5)
[2017-07-30 09:14] LABS: INR 2.2
[2017-07-30 09:23] LABS: PT Patient Result 22.9 SECS
[2017-07-30] MEDS: OXYBUTYNIN XL 5 MG TABLET PO SCH (09:34)
[2017-07-30] MEDS: DILTIAZEM CD 240 MG CAPSULE PO SCH ×2 (09:34→20:45)
[2017-07-30] MEDS: MONTELUKAST 10 MG TABLET PO SCH (09:34)
[2017-07-30] MEDS: POTASSIUM CHLORIDE 20 MEQ TABLET PO SCH (09:35)
[2017-07-30] MEDS: PANTOPRAZOLE 40 MG TABLET PO SCH ×2 (09:35→16:38)
[2017-07-30] MEDS: CITALOPRAM 20 MG TABLET PO SCH (09:35)
[2017-07-30] MEDS: predniSONE 10 MG TABLET PO SCH (09:35)
[2017-07-30] MEDS: ISOSORBIDE MONONITRATE 30 MG TABLET PO SCH (09:35)
[2017-07-30] MEDS: CHOLECALCIFEROL 1,000 UNIT TABLET PO SCH (09:35)
[2017-07-30 09:36] LABS: Calcium 8.7 MG/DL (8.5-10.1); Osmolality,Calculated 276.8 MOS/KG (273-304); Potassium 3.6 MMOL/L (3.5-5.1)
[2017-07-30] MEDS: FUROSEMIDE 40 MG/4 ML VIAL IV SCH ×2 (09:36→15:37)
[2017-07-30] MEDS: SKIN HEALING OINT (AQUAPHOR) 50 GM TUBE TOP SCH ×2 (09:38→20:46)
[2017-07-30] MEDS: ENOXAPARIN 60 MG/0.6 ML SYRINGE SUBCUT SCH (09:39)
[2017-07-30] MEDS: POLYETHYLENE GLYCOL POWDER 17 GM PACK PO SCH (09:39)
[2017-07-30] MEDS: CARBOXYMETHYLCELLULOSE 1% OPH SOLN BOTH EYES SCH ×2 (09:58→20:46)
[2017-07-30] MEDS: SODIUM CHLORIDE 0.65% NASAL SPRAY 45 ML BOTTLE BOTH NARES SCH ×2 (15:36→20:55)
[2017-07-30] MEDS: BENZONATATE 100 MG CAPSULE PO SCH ×2 (15:36→20:44)
[2017-07-30] MEDS: WARFARIN 4 MG TABLET PO SCH (17:57)
[2017-07-30] MEDS: ISOSORBIDE MONONITRATE 60 MG TABLET PO SCH (20:44)
[2017-07-30] MEDS: GABAPENTIN 300 MG CAPSULE PO SCH (20:45)
[2017-07-30] MEDS: THYROID 60 MG TABLET PO SCH (20:45)
[2017-07-30] MEDS: ASPIRIN EC 81 MG TABLET PO SCH (20:46)
[2017-07-30] MEDS: guaiFENesin 200 MG/10 ML UDCUP PO PRN (22:50)
[2017-07-30] MEDS: ZALEPLON 5 MG CAPSULE PO PRN (22:50)
[2017-07-31 06:02] LABS: Basophils % 0.2 % (0.0-0.8); Eosinophils # 0.1 10*3/uL (0.0-0.87); Eosinophils % 1.1 % (0.00-10.9); Hematocrit 28.1 VOL% (35.7-47.0); Hemoglobin 8.7 GM/DL (12.0-16.0); Immature Granulocytes % 2.2 %; Immature Granulocytes Absolute 0.19 #; Lymphocytes # 1.1 10*3/uL (1.4-4.0); Lymphocytes % 12.6 % (21.3-54.2); Mean Corpuscular Hemoglobin 30 PG (27-34); Mean Corpuscular Volume 97.2 FL (87-102); Mean Platelet Volume 10.3 FL (9.6-12.0); Monocytes # 1.2 10*3/uL (0.11-0.8); Monocytes % 13.4 % (1.7-12.7); Neutrophils # 6.2 10*3/uL (1.4-7.4); Neutrophils % 70.5 % (38.7-73.9); Platelet Count 176 T/CUMM (130-400); Red Blood Count 2.89 MC/CUMM (3.8-5.5); Red Cell Distribution Width 18.7 % (9.3-17.3); White Blood Count 8.8 T/CUMM (4-12)
[2017-07-31 06:15] LABS: INR 2.2
[2017-07-31 06:18] LABS: PT Patient Result 22.9 SECS
[2017-07-31 06:26] LABS: Calcium 8.6 MG/DL (8.5-10.1); Osmolality,Calculated 281.5 MOS/KG (273-304)
[2017-07-31] MEDS: ALBUTEROL/IPRATROPIUM 3 ML NEB RESP TX SCH ×2 (07:04→15:07)
[2017-07-31] MEDS: FUROSEMIDE 40 MG/4 ML VIAL IV SCH ×2 (08:43→16:30)
[2017-07-31] MEDS: predniSONE 10 MG TABLET PO SCH (08:44)
[2017-07-31] MEDS: BENZONATATE 100 MG CAPSULE PO SCH ×3 (08:44→20:38)
[2017-07-31] MEDS: MONTELUKAST 10 MG TABLET PO SCH (08:44)
[2017-07-31] MEDS: POTASSIUM CHLORIDE 20 MEQ TABLET PO SCH (08:44)
[2017-07-31] MEDS: POLYETHYLENE GLYCOL POWDER 17 GM PACK PO SCH (08:44)
[2017-07-31] MEDS: CHOLECALCIFEROL 1,000 UNIT TABLET PO SCH (08:44)
[2017-07-31] MEDS: CITALOPRAM 20 MG TABLET PO SCH (08:45)
[2017-07-31] MEDS: PANTOPRAZOLE 40 MG TABLET PO SCH ×2 (08:45→16:32)
[2017-07-31] MEDS: ISOSORBIDE MONONITRATE 30 MG TABLET PO SCH (08:45)
[2017-07-31] MEDS: SODIUM CHLORIDE 0.65% NASAL SPRAY 45 ML BOTTLE BOTH NARES SCH ×3 (08:45→20:50)
[2017-07-31] MEDS: DILTIAZEM CD 240 MG CAPSULE PO SCH ×2 (08:45→20:38)
[2017-07-31] MEDS: CARBOXYMETHYLCELLULOSE 1% OPH SOLN BOTH EYES SCH ×2 (08:45→20:50)
[2017-07-31] MEDS: OXYBUTYNIN XL 5 MG TABLET PO SCH (08:45)
[2017-07-31] MEDS: SKIN HEALING OINT (AQUAPHOR) 50 GM TUBE TOP SCH ×2 (10:30→20:45)
[2017-07-31] MEDS ORDERED: WARFARIN 4 MG TABLET PO SCH (18:00)
[2017-07-31] MEDS ORDERED: WARFARIN 5 MG TABLET PO SCH (18:00)
[2017-07-31] MEDS: GABAPENTIN 300 MG CAPSULE PO SCH (20:38)
[2017-07-31] MEDS: THYROID 60 MG TABLET PO SCH (20:38)
[2017-07-31] MEDS: ISOSORBIDE MONONITRATE 60 MG TABLET PO SCH (20:38)
[2017-07-31] MEDS: ZALEPLON 5 MG CAPSULE PO PRN (20:38)
[2017-07-31] MEDS: ASPIRIN EC 81 MG TABLET PO SCH (20:38)
[2017-07-31] MEDS ORDERED: DOCUSATE SODIUM 100 MG CAPSULE PO ONE (22:00)
[2017-08-01] MEDS: ALBUTEROL/IPRATROPIUM 3 ML NEB RESP TX SCH ×4 (00:07→23:26)
[2017-08-01 05:12] LABS: Basophils % 0.3 % (0.0-0.8); Eosinophils # 0.1 10*3/uL (0.0-0.87); Hematocrit 31.6 VOL% (35.7-47.0); Hemoglobin 10.1 GM/DL (12.0-16.0); Immature Granulocytes % 3.6 %; Immature Granulocytes Absolute 0.39 #; Lymphocytes # 1.5 10*3/uL (1.4-4.0); Lymphocytes % 13.9 % (21.3-54.2); Mean Corpuscular Hemoglobin 30 PG (27-34); Mean Platelet Volume 10.1 FL (9.6-12.0); Monocytes # 1.4 10*3/uL (0.11-0.8); Monocytes % 12.6 % (1.7-12.7); NRBC # 0.02 10*3/uL; Neutrophils # 7.3 10*3/uL (1.4-7.4); Neutrophils % 68.6 % (38.7-73.9); Platelet Count 201 T/CUMM (130-400); Red Blood Count 3.36 MC/CUMM (3.8-5.5); Red Cell Distribution Width 18.6 % (9.3-17.3); White Blood Count 10.7 T/CUMM (4-12)
[2017-08-01 05:36] LABS: INR 2.3
[2017-08-01 05:43] LABS: PT Patient Result 23.8 SECS
[2017-08-01 05:55] LABS: Calcium 8.8 MG/DL (8.5-10.1); Osmolality,Calculated 281.5 MOS/KG (273-304); Potassium 3.6 MMOL/L (3.5-5.1)
[2017-08-01] MEDS: PANTOPRAZOLE 40 MG TABLET PO SCH ×2 (09:08→16:21)
[2017-08-01] MEDS: POLYETHYLENE GLYCOL POWDER 17 GM PACK PO SCH (09:08)
[2017-08-01] MEDS: OXYBUTYNIN XL 5 MG TABLET PO SCH (09:09)
[2017-08-01] MEDS: POTASSIUM CHLORIDE 20 MEQ TABLET PO SCH (09:09)
[2017-08-01] MEDS: CHOLECALCIFEROL 1,000 UNIT TABLET PO SCH (09:09)
[2017-08-01] MEDS: MONTELUKAST 10 MG TABLET PO SCH (09:09)
[2017-08-01] MEDS: ISOSORBIDE MONONITRATE 30 MG TABLET PO SCH (09:09)
[2017-08-01] MEDS: DILTIAZEM CD 240 MG CAPSULE PO SCH ×2 (09:09→21:07)
[2017-08-01] MEDS: predniSONE 10 MG TABLET PO SCH (09:09)
[2017-08-01] MEDS: FUROSEMIDE 40 MG/4 ML VIAL IV SCH ×2 (09:10→16:21)
[2017-08-01] MEDS: BENZONATATE 100 MG CAPSULE PO SCH ×3 (09:10→21:08)
[2017-08-01] MEDS: SKIN HEALING OINT (AQUAPHOR) 50 GM TUBE TOP SCH ×2 (09:10→21:09)
[2017-08-01] MEDS: CITALOPRAM 20 MG TABLET PO SCH (09:10)
[2017-08-01] MEDS: CARBOXYMETHYLCELLULOSE 1% OPH SOLN BOTH EYES SCH ×2 (09:19→21:11)
[2017-08-01] MEDS: SODIUM CHLORIDE 0.65% NASAL SPRAY 45 ML BOTTLE BOTH NARES SCH ×3 (09:19→21:11)
[2017-08-01] MEDS ORDERED: WARFARIN 3 MG TABLET PO SCH (18:00)
[2017-08-01] MEDS ORDERED: WARFARIN 4 MG TABLET PO SCH (18:00)
[2017-08-01] MEDS ORDERED: WARFARIN 2 MG TABLET PO SCH (18:00)
[2017-08-01] MEDS: THYROID 60 MG TABLET PO SCH (21:06)
[2017-08-01] MEDS: ISOSORBIDE MONONITRATE 60 MG TABLET PO SCH (21:08)
[2017-08-01] MEDS: ASPIRIN EC 81 MG TABLET PO SCH (21:08)
[2017-08-01] MEDS: GABAPENTIN 300 MG CAPSULE PO SCH (21:09)
[2017-08-01] MEDS: ZALEPLON 5 MG CAPSULE PO PRN (21:09)
[2017-08-02 06:31] LABS: Basophils % 0.2 % (0.0-0.8); Eosinophils # 0.2 10*3/uL (0.0-0.87); Eosinophils % 1.7 % (0.00-10.9); Hematocrit 31.9 VOL% (35.7-47.0); Hemoglobin 10.2 GM/DL (12.0-16.0); Immature Granulocytes % 2.5 %; Immature Granulocytes Absolute 0.27 #; Lymphocytes # 1.6 10*3/uL (1.4-4.0); Lymphocytes % 14.9 % (21.3-54.2); Mean Corpuscular Hemoglobin 30 PG (27-34); Mean Platelet Volume 10.2 FL (9.6-12.0); Monocytes # 1.2 10*3/uL (0.11-0.8); Neutrophils # 7.5 10*3/uL (1.4-7.4); Neutrophils % 69.7 % (38.7-73.9); Platelet Count 227 T/CUMM (130-400); Red Blood Count 3.43 MC/CUMM (3.8-5.5); Red Cell Distribution Width 18.6 % (9.3-17.3); White Blood Count 10.8 T/CUMM (4-12)
[2017-08-02 06:42] LABS: INR 2.9
[2017-08-02] MEDS: ALBUTEROL/IPRATROPIUM 3 ML NEB RESP TX SCH (06:47)
[2017-08-02 07:08] LABS: Calcium 8.8 MG/DL (8.5-10.1); Osmolality,Calculated 281.4 MOS/KG (273-304); Potassium 3.8 MMOL/L (3.5-5.1)
[2017-08-02 07:18] LABS: PT Patient Result 29.1 SECS
[2017-08-02 07:44] VITALS: BP 106/56
[2017-08-02] MEDS: DILTIAZEM CD 240 MG CAPSULE PO SCH (08:39)
[2017-08-02] MEDS: SKIN HEALING OINT (AQUAPHOR) 50 GM TUBE TOP SCH (08:39)
[2017-08-02] MEDS: SODIUM CHLORIDE 0.65% NASAL SPRAY 45 ML BOTTLE BOTH NARES SCH (08:39)
[2017-08-02] MEDS: MONTELUKAST 10 MG TABLET PO SCH (08:40)
[2017-08-02] MEDS: BENZONATATE 100 MG CAPSULE PO SCH (08:40)
[2017-08-02] MEDS: CHOLECALCIFEROL 1,000 UNIT TABLET PO SCH (08:40)
[2017-08-02] MEDS: POLYETHYLENE GLYCOL POWDER 17 GM PACK PO SCH (08:40)
[2017-08-02] MEDS: CITALOPRAM 20 MG TABLET PO SCH (08:40)
[2017-08-02] MEDS: POTASSIUM CHLORIDE 20 MEQ TABLET PO SCH (08:40)
[2017-08-02] MEDS: PANTOPRAZOLE 40 MG TABLET PO SCH (08:40)
[2017-08-02] MEDS: predniSONE 10 MG TABLET PO SCH (08:40)
[2017-08-02] MEDS: CARBOXYMETHYLCELLULOSE 1% OPH SOLN BOTH EYES SCH (08:41)
[2017-08-02] MEDS: FUROSEMIDE 40 MG/4 ML VIAL IV SCH (08:41)
[2017-08-02] MEDS: ISOSORBIDE MONONITRATE 30 MG TABLET PO SCH (08:41)
[2017-08-02] MEDS: OXYBUTYNIN XL 5 MG TABLET PO SCH (08:41)
== END 2017-08-02 12:56 | disposition home health service (06) | DRG 291 ==
LOC: EDBD → EDUNIT# → N.ED 15:43 → N.EDINP 19:17 → N.2E 20:18
PROVIDERS: ADMIT Hospitalist; ATTEND Hospitalist

== ENCOUNTER 2017-08-06 14:20 | Inpatient (IN) ==
[2017-08-06] MEDS ORDERED: MEROPENEM 1,000 MG in SODIUM CHLORIDE 0.9% 100 ML IV STA (15:59)
[2017-08-06 16:01] LABS: Apearance,Urine CLEAR (Clear); Bilirubin,Urine Negative (Negative); Blood, Urine Negative (Negative); Glucose,Urine (UA) Negative (Negative); Ketones,Urine Negative (Negative); Nitrite,Urine Negative (Negative); Protein,Urine Negative; RBC,Urine <1 /HPF (0-4); Urine Color Straw (Yellow); Urine Specific Gravity 1.006 (1.001-1.035); Urine Urobilinogen < 2.0 EU/DL (0.2-1.0); WBC,Urine <1 /HPF (0-6)
[2017-08-06] MEDS ORDERED: MEROPENEM 1,000 MG in SYRINGE 1 EACH IV STA (16:07)
[2017-08-06 16:19] LABS: Basophils # 0.1 10*3/uL (0.0-0.2); Basophils % 0.2 % (0.0-0.8); Immature Granulocytes % 2.7 %; Immature Granulocytes Absolute 0.57 #; Lymphocytes % 4.6 % (21.3-54.2); Mean Corpuscular HGB Conc 31.4 GM/DL (32-36); Mean Corpuscular Hemoglobin 30 PG (27-34); Mean Corpuscular Volume 95.4 FL (87-102); Mean Platelet Volume 10.6 FL (9.6-12.0); Monocytes # 1.4 10*3/uL (0.11-0.8); Monocytes % 6.6 % (1.7-12.7); Neutrophils # 17.8 10*3/uL (1.4-7.4); Neutrophils % 85.9 % (38.7-73.9); Platelet Count 203 T/CUMM (130-400); Red Blood Count 3.67 MC/CUMM (3.8-5.5); Red Cell Distribution Width 18.2 % (9.3-17.3); White Blood Count 20.8 T/CUMM (4-12)
[2017-08-06 16:38] LABS: Lactic Acid 3.3 MMOL/L (0.4-2.0)
[2017-08-06 16:43] LABS: Alanine Aminotransferase 17 U/L (13-56); Albumin 3.3 G/DL (3.4-5.0); Alkaline Phosphatase 92 U/L (45-117); Aspartate Amino Transferase 23 U/L (0-37); Blood Urea Nitrogen 17 MG/DL (7-18); Calcium 8.3 MG/DL (8.5-10.1); Glucose 147 MG/DL (74-106); Potassium 3.3 MMOL/L (3.5-5.1); Sodium 136 MMOL/L (136-145); Total Protein 6.5 G/DL (6.4-8.3)
[2017-08-06 17:22] LABS: Sedimentation Rate-Westergren 75 MM/HR (0-30)
[2017-08-06] MEDS ORDERED: PROMETHAZINE 25 MG TABLET PO PRN (17:56)
[2017-08-06] MEDS ORDERED: guaiFENesin 200 MG/10 ML UDCUP PO PRN (17:56)
[2017-08-06] MEDS ORDERED: CETIRIZINE 10 MG TABLET PO PRN (17:56)
[2017-08-06] MEDS ORDERED: NITROGLYCERIN SL 0.4 MG TABLET SL PRN (17:56)
[2017-08-06] MEDS ORDERED: DAPTOmycin 500 MG VIAL IV SCH (18:00)
[2017-08-06] MEDS ORDERED: SODIUM CHLORIDE 0.9% 1,550 ML IV ONE (18:02)
[2017-08-06] MEDS ORDERED: ALBUTEROL/IPRATROPIUM 3 ML NEB RESP TX PRN (18:06)
[2017-08-06 18:32] LABS: ABG Base Excess 5.9 MMOL/L (-2.5-2.5); ABG HCO3 29.7 MMOL/L (20-26); ABG Oxygen Saturation 94.5 % (95-100); ABG PCO2 37.6 MM HG (35-48); ABG PO2 69.9 MM HG (80-95); ABG TCO2 26.5 MMOL/L (23-27); Allen Test Positive
[2017-08-06 19:12] LABS: Eosinophils 1 % (0-10); Lymphocytes 3 % (20-55); Segmented Neutrophils 88 % (50-85); Total Cells Counted 100
[2017-08-06 19:13] LABS: Elliptocytes Few; Ovalocytes Few; Platelet Estimate Normal; Polychromasia Few; Stomatocytes Slight; Tear Drop Cells Slight
[2017-08-06] MEDS ORDERED: ISOSORBIDE MONONITRATE 60 MG TABLET PO SCH (21:00)
[2017-08-06] MEDS ORDERED: ROSUVASTATIN 20 MG TABLET PO SCH (21:00)
[2017-08-06] MEDS: ASPIRIN EC 81 MG TABLET PO SCH (21:45)
[2017-08-06] MEDS: DILTIAZEM CD 240 MG CAPSULE PO SCH (21:45)
[2017-08-06] MEDS: METHOCARBAMOL 750 MG TABLET PO PRN (21:45)
[2017-08-06] MEDS: GABAPENTIN 300 MG CAPSULE PO SCH (21:45)
[2017-08-06] MEDS: THYROID 60 MG TABLET PO SCH (21:46)
[2017-08-06 23:00] LABS: INR 1.5; PT Patient Result 15.7 SECS
[2017-08-06] MEDS: MEROPENEM 1,000 MG in SYRINGE 1 EACH IV SCH (23:22)
[2017-08-06] MEDS: SYSTANE BOTH EYES SCH (23:22)
[2017-08-06] MEDS ORDERED: WARFARIN 4 MG TABLET PO SCH (23:30)
[2017-08-06] MEDS ORDERED: ENOXAPARIN 60 MG/0.6 ML SYRINGE SUBCUT SCH (23:45)
[2017-08-07] MEDS: ENOXAPARIN 60 MG/0.6 ML SYRINGE SUBCUT SCH ×2 (01:03→21:22)
[2017-08-07 06:56] LABS: Basophils % 0.2 % (0.0-0.8); Eosinophils # 0.2 10*3/uL (0.0-0.87); Eosinophils % 1.7 % (0.00-10.9); Hematocrit 29.9 VOL% (35.7-47.0); Hemoglobin 9.7 GM/DL (12.0-16.0); Immature Granulocytes Absolute 0.26 #; Lymphocytes # 1.3 10*3/uL (1.4-4.0); Lymphocytes % 10.4 % (21.3-54.2); Mean Corpuscular HGB Conc 32.4 GM/DL (32-36); Mean Corpuscular Hemoglobin 30 PG (27-34); Mean Corpuscular Volume 93.4 FL (87-102); Mean Platelet Volume 10.6 FL (9.6-12.0); Monocytes # 1.3 10*3/uL (0.11-0.8); Monocytes % 9.9 % (1.7-12.7); Neutrophils # 9.8 10*3/uL (1.4-7.4); Neutrophils % 75.8 % (38.7-73.9); Platelet Count 175 T/CUMM (130-400); Red Cell Distribution Width 18.1 % (9.3-17.3); White Blood Count 12.9 T/CUMM (4-12)
[2017-08-07 07:00] LABS: INR 1.4; PT Patient Result 15.1 SECS
[2017-08-07 07:22] LABS: Albumin 2.7 G/DL (3.4-5.0); Calcium 8.1 MG/DL (8.5-10.1); Potassium 3.1 MMOL/L (3.5-5.1); Total Protein 5.7 G/DL (6.4-8.3)
[2017-08-07] MEDS ORDERED: FUROSEMIDE 20 MG TABLET PO SCH (09:00)
[2017-08-07] MEDS: CITALOPRAM 20 MG TABLET PO SCH (09:19)
[2017-08-07] MEDS: MONTELUKAST 10 MG TABLET PO SCH (09:19)
[2017-08-07] MEDS: MEROPENEM 1,000 MG in SYRINGE 1 EACH IV SCH ×3 (09:19→23:15)
[2017-08-07] MEDS: ISOSORBIDE MONONITRATE 30 MG TABLET PO SCH (09:20)
[2017-08-07] MEDS: OXYBUTYNIN XL 5 MG TABLET PO SCH (09:20)
[2017-08-07] MEDS: predniSONE 10 MG TABLET PO SCH (09:20)
[2017-08-07] MEDS: CHOLECALCIFEROL 1,000 UNIT TABLET PO SCH (09:20)
[2017-08-07] MEDS: PANTOPRAZOLE 40 MG TABLET PO SCH ×2 (09:21→17:15)
[2017-08-07] MEDS: POLYETHYLENE GLYCOL POWDER 17 GM PACK PO SCH (09:21)
[2017-08-07] MEDS: POTASSIUM CHLORIDE 20 MEQ TABLET PO PRN ×4 (10:08→17:15)
[2017-08-07] MEDS: DILTIAZEM CD 240 MG CAPSULE PO SCH ×2 (10:09→21:23)
[2017-08-07] MEDS: THYROID 60 MG TABLET PO SCH (17:15)
[2017-08-07] MEDS ORDERED: WARFARIN 4 MG TABLET PO SCH (18:00)
[2017-08-07] MEDS: BREO ELLIPTA 200MCG/25MCG INH SCH (21:20)
[2017-08-07] MEDS: SYSTANE BOTH EYES SCH (21:21)
[2017-08-07] MEDS: GABAPENTIN 300 MG CAPSULE PO SCH (21:23)
[2017-08-07] MEDS: ASPIRIN EC 81 MG TABLET PO SCH (21:23)
[2017-08-07] MEDS: METHOCARBAMOL 750 MG TABLET PO PRN (21:24)
[2017-08-07] MEDS: ACETAMINOPHEN 325 MG TABLET PO PRN (23:14)
[2017-08-07] MEDS: BENZONATATE 100 MG CAPSULE PO PRN (23:42)
[2017-08-08 07:38] LABS: Basophils % 0.3 % (0.0-0.8); Eosinophils # 0.2 10*3/uL (0.0-0.87); Eosinophils % 2.3 % (0.00-10.9); Hematocrit 31.2 VOL% (35.7-47.0); Hemoglobin 9.8 GM/DL (12.0-16.0); Immature Granulocytes % 1.2 %; Immature Granulocytes Absolute 0.12 #; Lymphocytes # 1.5 10*3/uL (1.4-4.0); Lymphocytes % 14.2 % (21.3-54.2); Mean Corpuscular HGB Conc 31.4 GM/DL (32-36); Mean Corpuscular Hemoglobin 30 PG (27-34); Mean Corpuscular Volume 95.1 FL (87-102); Mean Platelet Volume 11.1 FL (9.6-12.0); Monocytes # 1.2 10*3/uL (0.11-0.8); Monocytes % 11.4 % (1.7-12.7); Neutrophils # 7.2 10*3/uL (1.4-7.4); Neutrophils % 70.6 % (38.7-73.9); Platelet Count 175 T/CUMM (130-400); Red Blood Count 3.28 MC/CUMM (3.8-5.5); Red Cell Distribution Width 18.2 % (9.3-17.3); White Blood Count 10.2 T/CUMM (4-12)
[2017-08-08 07:55] LABS: INR 1.6; PT Patient Result 16.3 SECS
[2017-08-08 08:08] LABS: Calcium 8.4 MG/DL (8.5-10.1); Osmolality,Calculated 282.1 MOS/KG (273-304); Potassium 4.5 MMOL/L (3.5-5.1)
[2017-08-08] MEDS: SYSTANE BOTH EYES SCH ×3 (08:31→20:07)
[2017-08-08] MEDS: POLYETHYLENE GLYCOL POWDER 17 GM PACK PO SCH (09:22)
[2017-08-08] MEDS: MEROPENEM 1,000 MG in SYRINGE 1 EACH IV SCH ×4 (09:23→23:29)
[2017-08-08] MEDS: OXYBUTYNIN XL 5 MG TABLET PO SCH (09:24)
[2017-08-08] MEDS: PANTOPRAZOLE 40 MG TABLET PO SCH ×2 (09:24→17:06)
[2017-08-08] MEDS: CITALOPRAM 20 MG TABLET PO SCH (09:24)
[2017-08-08] MEDS: DILTIAZEM CD 240 MG CAPSULE PO SCH ×2 (09:24→20:05)
[2017-08-08] MEDS: predniSONE 10 MG TABLET PO SCH (09:24)
[2017-08-08] MEDS: ISOSORBIDE MONONITRATE 30 MG TABLET PO SCH (09:24)
[2017-08-08] MEDS: CHOLECALCIFEROL 1,000 UNIT TABLET PO SCH (09:24)
[2017-08-08] MEDS: MONTELUKAST 10 MG TABLET PO SCH (09:24)
[2017-08-08] MEDS: BREO ELLIPTA 200MCG/25MCG INH SCH (09:39)
[2017-08-08] MEDS: ALBUTEROL/IPRATROPIUM 3 ML NEB RESP TX SCH ×2 (15:52→19:25)
[2017-08-08] MEDS: WARFARIN 5 MG TABLET PO SCH (17:06)
[2017-08-08] MEDS: THYROID 60 MG TABLET PO SCH (17:06)
[2017-08-08] MEDS: ENOXAPARIN 60 MG/0.6 ML SYRINGE SUBCUT SCH (20:05)
[2017-08-08] MEDS: GABAPENTIN 300 MG CAPSULE PO SCH (20:06)
[2017-08-08] MEDS: ASPIRIN EC 81 MG TABLET PO SCH (20:06)
[2017-08-08] MEDS: ACETAMINOPHEN 325 MG TABLET PO PRN (20:37)
[2017-08-08] MEDS: METHOCARBAMOL 750 MG TABLET PO PRN (21:43)
[2017-08-09 06:07] LABS: Basophils % 0.1 % (0.0-0.8); Eosinophils # 0.2 10*3/uL (0.0-0.87); Eosinophils % 1.4 % (0.00-10.9); Hematocrit 29.6 VOL% (35.7-47.0); Hemoglobin 9.2 GM/DL (12.0-16.0); Immature Granulocytes % 1.5 %; Immature Granulocytes Absolute 0.16 #; Lymphocytes # 1.3 10*3/uL (1.4-4.0); Lymphocytes % 12.1 % (21.3-54.2); Mean Corpuscular HGB Conc 31.1 GM/DL (32-36); Mean Corpuscular Hemoglobin 30 PG (27-34); Mean Corpuscular Volume 96.7 FL (87-102); Mean Platelet Volume 10.5 FL (9.6-12.0); Monocytes # 1.1 10*3/uL (0.11-0.8); Monocytes % 9.7 % (1.7-12.7); Neutrophils # 8.3 10*3/uL (1.4-7.4); Neutrophils % 75.2 % (38.7-73.9); Platelet Count 166 T/CUMM (130-400); Red Blood Count 3.06 MC/CUMM (3.8-5.5); Red Cell Distribution Width 18.1 % (9.3-17.3)
[2017-08-09 06:16] LABS: INR 1.8; PT Patient Result 18.7 SECS
[2017-08-09 06:45] LABS: Calcium 8.6 MG/DL (8.5-10.1); Osmolality,Calculated 279.3 MOS/KG (273-304); Potassium 4.4 MMOL/L (3.5-5.1)
[2017-08-09 06:49] LABS: T4 (Thyroxine) 4.5 UG/DL (4.7-13.3); Thyroid Stimulating Hormone 1.93 uIU/ml (0.358-3.74)
[2017-08-09] MEDS: ALBUTEROL/IPRATROPIUM 3 ML NEB RESP TX SCH ×4 (07:36→21:53)
[2017-08-09] MEDS ORDERED: FUROSEMIDE 40 MG TABLET PO SCH (09:30)
[2017-08-09] MEDS ORDERED: FUROSEMIDE 40 MG/4 ML VIAL IV ONE (09:39)
[2017-08-09] MEDS: MEROPENEM 1,000 MG in SYRINGE 1 EACH IV SCH ×3 (09:56→23:48)
[2017-08-09] MEDS: POLYETHYLENE GLYCOL POWDER 17 GM PACK PO SCH (09:57)
[2017-08-09] MEDS: CITALOPRAM 20 MG TABLET PO SCH (09:57)
[2017-08-09] MEDS: CHOLECALCIFEROL 1,000 UNIT TABLET PO SCH (09:58)
[2017-08-09] MEDS: DILTIAZEM CD 240 MG CAPSULE PO SCH ×2 (09:59→21:31)
[2017-08-09] MEDS: FLUCONAZOLE 200 MG TABLET PO SCH (09:59)
[2017-08-09] MEDS: MONTELUKAST 10 MG TABLET PO SCH (09:59)
[2017-08-09] MEDS: PANTOPRAZOLE 40 MG TABLET PO SCH ×2 (09:59→17:01)
[2017-08-09] MEDS: OXYBUTYNIN XL 5 MG TABLET PO SCH (10:00)
[2017-08-09] MEDS: predniSONE 10 MG TABLET PO SCH (10:00)
[2017-08-09] MEDS: ISOSORBIDE MONONITRATE 30 MG TABLET PO SCH (10:00)
[2017-08-09] MEDS: SYSTANE BOTH EYES SCH ×2 (10:13→21:33)
[2017-08-09] MEDS: BREO ELLIPTA 200MCG/25MCG INH SCH (10:14)
[2017-08-09 14:51] LABS: Mycoplasma pneumoniae Ab Inter SEE COMMENTS; Mycoplasma pneumoniae Ab, IgG Positive (Negative); Mycoplasma pneumoniae Ab, IgM Negative (Negative)
[2017-08-09] MEDS: WARFARIN 5 MG TABLET PO SCH (17:01)
[2017-08-09] MEDS: THYROID 60 MG TABLET PO SCH (17:01)
[2017-08-09] MEDS: ASPIRIN EC 81 MG TABLET PO SCH (21:31)
[2017-08-09] MEDS: GABAPENTIN 300 MG CAPSULE PO SCH (21:31)
[2017-08-09] MEDS: ENOXAPARIN 60 MG/0.6 ML SYRINGE SUBCUT SCH (21:34)
[2017-08-09] MEDS: METHOCARBAMOL 750 MG TABLET PO PRN (23:48)
[2017-08-10 05:26] LABS: Basophils % 0.1 % (0.0-0.8); Eosinophils # 0.2 10*3/uL (0.0-0.87); Eosinophils % 1.6 % (0.00-10.9); Hematocrit 29.4 VOL% (35.7-47.0); Hemoglobin 9.4 GM/DL (12.0-16.0); Immature Granulocytes % 1.1 %; Immature Granulocytes Absolute 0.14 #; Lymphocytes # 1.4 10*3/uL (1.4-4.0); Lymphocytes % 10.9 % (21.3-54.2); Mean Corpuscular Hemoglobin 30 PG (27-34); Mean Corpuscular Volume 93.9 FL (87-102); Mean Platelet Volume 10.5 FL (9.6-12.0); Monocytes # 1.3 10*3/uL (0.11-0.8); Monocytes % 10.1 % (1.7-12.7); Neutrophils # 9.4 10*3/uL (1.4-7.4); Neutrophils % 76.2 % (38.7-73.9); Platelet Count 173 T/CUMM (130-400); Red Blood Count 3.13 MC/CUMM (3.8-5.5); Red Cell Distribution Width 18.2 % (9.3-17.3); White Blood Count 12.3 T/CUMM (4-12)
[2017-08-10 05:53] LABS: INR 2.8
[2017-08-10 05:56] LABS: PT Patient Result 28.5 SECS
[2017-08-10 06:01] LABS: Calcium 8.9 MG/DL (8.5-10.1); Osmolality,Calculated 281.4 MOS/KG (273-304); Potassium 4.1 MMOL/L (3.5-5.1)
[2017-08-10] MEDS: ALBUTEROL/IPRATROPIUM 3 ML NEB RESP TX SCH ×4 (07:32→20:15)
[2017-08-10] MEDS: MEROPENEM 1,000 MG in SYRINGE 1 EACH IV SCH (09:15)
[2017-08-10] MEDS: FUROSEMIDE 40 MG TABLET PO SCH (09:16)
[2017-08-10] MEDS: FLUCONAZOLE 200 MG TABLET PO SCH (09:16)
[2017-08-10] MEDS: MONTELUKAST 10 MG TABLET PO SCH (09:16)
[2017-08-10] MEDS: DILTIAZEM CD 240 MG CAPSULE PO SCH ×2 (09:16→21:51)
[2017-08-10] MEDS: predniSONE 10 MG TABLET PO SCH (09:16)
[2017-08-10] MEDS: PANTOPRAZOLE 40 MG TABLET PO SCH ×2 (09:16→18:10)
[2017-08-10] MEDS: CITALOPRAM 20 MG TABLET PO SCH (09:16)
[2017-08-10] MEDS: BENZONATATE 100 MG CAPSULE PO PRN ×3 (09:16→21:50)
[2017-08-10] MEDS: ISOSORBIDE MONONITRATE 30 MG TABLET PO SCH (09:16)
[2017-08-10] MEDS: CHOLECALCIFEROL 1,000 UNIT TABLET PO SCH (09:16)
[2017-08-10] MEDS: OXYBUTYNIN XL 5 MG TABLET PO SCH (09:17)
[2017-08-10] MEDS: POLYETHYLENE GLYCOL POWDER 17 GM PACK PO SCH (09:17)
[2017-08-10] MEDS: METOPROLOL TARTRATE 25 MG TABLET PO SCH ×2 (09:17→21:53)
[2017-08-10] MEDS: BREO ELLIPTA 200MCG/25MCG INH SCH (09:17)
[2017-08-10] MEDS: SYSTANE BOTH EYES SCH ×2 (09:18→21:53)
[2017-08-10] MEDS ORDERED: WARFARIN 5 MG TABLET PO SCH (18:00)
[2017-08-10] MEDS ORDERED: WARFARIN 4 MG TABLET PO SCH (18:00)
[2017-08-10] MEDS: THYROID 60 MG TABLET PO SCH (18:10)
[2017-08-10] MEDS: METHOCARBAMOL 750 MG TABLET PO PRN (21:49)
[2017-08-10] MEDS: GABAPENTIN 300 MG CAPSULE PO SCH (21:53)
[2017-08-10] MEDS: ASPIRIN EC 81 MG TABLET PO SCH (21:53)
[2017-08-11 07:01] LABS: Calcium 8.8 MG/DL (8.5-10.1); Osmolality,Calculated 276.7 MOS/KG (273-304); Potassium 4.2 MMOL/L (3.5-5.1)
[2017-08-11] MEDS: ALBUTEROL/IPRATROPIUM 3 ML NEB RESP TX SCH ×4 (07:22→19:13)
[2017-08-11 07:38] LABS: INR 5.2
[2017-08-11] MEDS ORDERED: PHYTONADIONE 5 MG/5 ML ORAL.SYR PO ONE (09:00)
[2017-08-11] MEDS: MONTELUKAST 10 MG TABLET PO SCH (10:01)
[2017-08-11] MEDS: FUROSEMIDE 40 MG TABLET PO SCH (10:01)
[2017-08-11] MEDS: METOPROLOL TARTRATE 25 MG TABLET PO SCH ×2 (10:01→21:47)
[2017-08-11] MEDS: DILTIAZEM CD 240 MG CAPSULE PO SCH ×2 (10:01→21:45)
[2017-08-11] MEDS: CITALOPRAM 20 MG TABLET PO SCH (10:02)
[2017-08-11] MEDS: CHOLECALCIFEROL 1,000 UNIT TABLET PO SCH (10:02)
[2017-08-11] MEDS: FLUCONAZOLE 200 MG TABLET PO SCH (10:02)
[2017-08-11] MEDS: ISOSORBIDE MONONITRATE 30 MG TABLET PO SCH (10:02)
[2017-08-11] MEDS: POLYETHYLENE GLYCOL POWDER 17 GM PACK PO SCH (10:02)
[2017-08-11] MEDS: SYSTANE BOTH EYES SCH ×2 (10:02→21:47)
[2017-08-11] MEDS: predniSONE 10 MG TABLET PO SCH (10:02)
[2017-08-11] MEDS: PANTOPRAZOLE 40 MG TABLET PO SCH ×2 (10:02→18:10)
[2017-08-11] MEDS: BREO ELLIPTA 200MCG/25MCG INH SCH (10:03)
[2017-08-11] MEDS: OXYBUTYNIN XL 5 MG TABLET PO SCH (10:10)
[2017-08-11] MEDS: THYROID 60 MG TABLET PO SCH (18:10)
[2017-08-11] MEDS: GABAPENTIN 300 MG CAPSULE PO SCH (21:45)
[2017-08-11] MEDS: METHOCARBAMOL 750 MG TABLET PO PRN (21:45)
[2017-08-11] MEDS: ASPIRIN EC 81 MG TABLET PO SCH (21:45)
[2017-08-11] MEDS: BENZONATATE 100 MG CAPSULE PO PRN (21:45)
[2017-08-12 07:45] LABS: Calcium 8.9 MG/DL (8.5-10.1); Osmolality,Calculated 282.5 MOS/KG (273-304); Potassium 4.2 MMOL/L (3.5-5.1)
[2017-08-12] MEDS: ALBUTEROL/IPRATROPIUM 3 ML NEB RESP TX SCH ×2 (07:48→11:38)
[2017-08-12] MEDS: PANTOPRAZOLE 40 MG TABLET PO SCH (09:17)
[2017-08-12] MEDS: FUROSEMIDE 40 MG TABLET PO SCH (09:17)
[2017-08-12] MEDS: METOPROLOL TARTRATE 25 MG TABLET PO SCH (09:17)
[2017-08-12] MEDS: predniSONE 10 MG TABLET PO SCH (09:17)
[2017-08-12] MEDS: CHOLECALCIFEROL 1,000 UNIT TABLET PO SCH (09:17)
[2017-08-12] MEDS: MONTELUKAST 10 MG TABLET PO SCH (09:17)
[2017-08-12] MEDS: CITALOPRAM 20 MG TABLET PO SCH (09:17)
[2017-08-12] MEDS: FLUCONAZOLE 200 MG TABLET PO SCH (09:17)
[2017-08-12] MEDS: ISOSORBIDE MONONITRATE 30 MG TABLET PO SCH (09:17)
[2017-08-12] MEDS: DILTIAZEM CD 240 MG CAPSULE PO SCH (09:17)
[2017-08-12] MEDS: OXYBUTYNIN XL 5 MG TABLET PO SCH (09:18)
[2017-08-12] MEDS: POLYETHYLENE GLYCOL POWDER 17 GM PACK PO SCH (09:20)
[2017-08-12] MEDS: SYSTANE BOTH EYES SCH (09:20)
[2017-08-12] MEDS: BREO ELLIPTA 200MCG/25MCG INH SCH (09:21)
[2017-08-12 10:43] LABS: INR 1.3; PT Patient Result 13.7 SECS
[2017-08-12 12:25] VITALS: BP 118/70
== END 2017-08-12 16:00 | disposition home health service (06) | DRG 871 ==
LOC: EDUNIT# → EDBD → N.ED 14:20 → N.EDINP 17:48 → N.5E 20:12

== ENCOUNTER 2017-09-27 23:21 | Inpatient (IN) ==
[2017-09-27] MEDS ORDERED: ACETAMINOPHEN 650 MG SUPP RECTAL ONE (23:35)
[2017-09-27] MEDS ORDERED: PROPOFOL 1,000 MG/100 ML BOTTLE IV ONE (23:35)
[2017-09-27] MEDS ORDERED: CLINDAMYCIN INJ 50 ML IV ONE (23:35)
[2017-09-27] MEDS ORDERED: PIPERACILLIN/TAZOBACTAM 3,375 MG VIAL IV ONE (23:35)
[2017-09-27] MEDS ORDERED: methylPREDNISolone SOD SUC 125 MG/2 ML VIAL IV STA (23:38)
[2017-09-27] MEDS ORDERED: CLINDAMYCIN INJ 600 MG in PREMIX 1 EACH IV STA (23:38)
[2017-09-27] MEDS ORDERED: FUROSEMIDE 100 MG/10 ML VIAL IV STA (23:38)
[2017-09-27] MEDS ORDERED: PIPERACILLIN/TAZOBACTAM 3,375 MG in SODIUM CHLORIDE 0.9% 100 ML IV STA (23:38)
[2017-09-27 23:55] LABS: ABG Base Excess 5.4 MMOL/L (-2.5-2.5); ABG HCO3 29.3 MMOL/L (20-26); ABG Oxygen Saturation 97.9 % (95-100); ABG PCO2 51.5 MM HG (35-48); ABG PH 7.397 (7.35-7.45); ABG TCO2 27.6 MMOL/L (23-27); Allen Test Positive; Pt O2 Delivery Device Ventilator
[2017-09-28 00:08] LABS: INR 2.3
[2017-09-28 00:15] LABS: PT Patient Result 23.7 SECS
[2017-09-28 00:17] LABS: Basophils # 0.1 10*3/uL (0.0-0.2); Basophils % 0.2 % (0.0-0.8); Eosinophils % 0.1 % (0.00-10.9); Hematocrit 41.2 VOL% (35.7-47.0); Hemoglobin 12.6 GM/DL (12.0-16.0); Immature Granulocytes % 1.3 %; Immature Granulocytes Absolute 0.35 #; Lymphocytes # 1.8 10*3/uL (1.4-4.0); Lymphocytes % 6.8 % (21.3-54.2); Mean Corpuscular HGB Conc 30.6 GM/DL (32-36); Mean Corpuscular Hemoglobin 28 PG (27-34); Mean Corpuscular Volume 92.6 FL (87-102); Mean Platelet Volume 11.8 FL (9.6-12.0); Monocytes # 1.4 10*3/uL (0.11-0.8); Monocytes % 5.6 % (1.7-12.7); Neutrophils # 22.3 10*3/uL (1.4-7.4); Platelet Count 251 T/CUMM (130-400); Red Blood Count 4.45 MC/CUMM (3.8-5.5); Red Cell Distribution Width 16.7 % (9.3-17.3); White Blood Count 25.9 T/CUMM (4-12)
[2017-09-28] MEDS ORDERED: ACETAMINOPHEN 650 MG SUPP RECTAL STA (00:26)
[2017-09-28 01:10] LABS: Band Neutrophils 7 % (0-10); Lymphocytes 9 % (20-55); Platelet Estimate Normal; Segmented Neutrophils 81 % (50-85); Total Cells Counted 100
[2017-09-28] MEDS ORDERED: VECURONIUM 10 MG VIAL IV ONE ×4 (01:46→06:17)
[2017-09-28 02:14] LABS: Apearance,Urine CLOUDY (Clear); Bilirubin,Urine Negative (Negative); Blood, Urine Large mg/dL (Negative); Glucose,Urine (UA) Negative (Negative); Ketones,Urine Negative (Negative); Mucus,Urine Occasional /LPF (Occasional); Nitrite,Urine Negative (Negative); Protein,Urine >=500 MG/DL; RBC,Urine 1 /HPF (0-4); Squamous Epithelial Cell,Urine Occasional /HPF (0-10); Urine Color Yellow (Yellow); Urine Specific Gravity 1.014 (1.001-1.035); WBC,Urine 3 /HPF (0-6)
[2017-09-28] MEDS ORDERED: ETOMIDATE 20 MG/10 ML VIAL IV ONE ×2 (02:29→06:18)
[2017-09-28 02:42] LABS: Alanine Aminotransferase 28 U/L (13-56); Albumin 3.9 G/DL (3.4-5.0); Alkaline Phosphatase 93 U/L (45-117); Aspartate Amino Transferase 42 U/L (0-37); Blood Urea Nitrogen 23 MG/DL (7-18); Calcium 8.9 MG/DL (8.5-10.1); Glucose 106 MG/DL (74-106); Osmolality,Calculated 282.4 MOS/KG (273-304); Potassium 4.1 MMOL/L (3.5-5.1); Sodium 140 MMOL/L (136-145); Total Protein 7.9 G/DL (6.4-8.3); Troponin I Only < 0.015 NG/ML (0.00-0.045)
[2017-09-28 02:43] LABS: Lactic Acid 2.9 MMOL/L (0.4-2.0)
[2017-09-28] MEDS ORDERED: DILTIAZEM 100 MG VIAL.ADD IV ONE (03:35)
[2017-09-28] MEDS ORDERED: METOPROLOL TARTRATE 5 MG/5 ML VIAL IV ONE (03:50)
[2017-09-28] MEDS ORDERED: fentaNYL 100 MCG/2 ML VIAL IV PRN (03:59)
[2017-09-28] MEDS ORDERED: METOPROLOL TARTRATE 5 MG/5 ML VIAL IV SCH (03:59)
[2017-09-28] MEDS ORDERED: MORPHINE 4 MG/1 ML VIAL IV PRN (03:59)
[2017-09-28] MEDS ORDERED: SODIUM CHLORIDE 0.9% 1,850 ML IV ONE (03:59)
[2017-09-28] MEDS ORDERED: PROMETHAZINE 25 MG/1 ML VIAL IM PRN (03:59)
[2017-09-28] MEDS ORDERED: ALBUTEROL/IPRATROPIUM 3 ML NEB RESP TX PRN (03:59)
[2017-09-28] MEDS ORDERED: ACETAMINOPHEN 325 MG TABLET PO PRN (03:59)
[2017-09-28] MEDS ORDERED: LACTATED RINGERS IV ONE (03:59)
[2017-09-28] MEDS ORDERED: ONDANSETRON 4 MG/2 ML VIAL IV PRN (03:59)
[2017-09-28] MEDS: PROPOFOL 1,000 MG/100 ML BOTTLE IV SCH ×2 (04:20→11:16)
[2017-09-28 04:43] LABS: ABG PCO2 62.4 MM HG (35-48); ABG PH 7.294 (7.35-7.45); ABG PO2 80.4 MM HG (80-95); ABG TCO2 27.2 MMOL/L (23-27); Allen Test Positive; Pt O2 Delivery Device Ventilator
[2017-09-28] MEDS: MEROPENEM 1,000 MG in SYRINGE 1 EACH IV SCH ×3 (04:45→20:58)
[2017-09-28 04:57] LABS: Basophils # 0.1 10*3/uL (0.0-0.2); Basophils % 0.2 % (0.0-0.8); Hemoglobin 12.1 GM/DL (12.0-16.0); Immature Granulocytes % 0.9 %; Immature Granulocytes Absolute 0.26 #; Lymphocytes # 0.4 10*3/uL (1.4-4.0); Lymphocytes % 1.6 % (21.3-54.2); Mean Corpuscular Hemoglobin 29 PG (27-34); Mean Corpuscular Volume 92.4 FL (87-102); Monocytes # 1.1 10*3/uL (0.11-0.8); Monocytes % 3.8 % (1.7-12.7); Neutrophils # 25.7 10*3/uL (1.4-7.4); Neutrophils % 93.5 % (38.7-73.9); Platelet Count 209 T/CUMM (130-400); Red Blood Count 4.22 MC/CUMM (3.8-5.5); Red Cell Distribution Width 16.8 % (9.3-17.3); White Blood Count 27.5 T/CUMM (4-12)
[2017-09-28 05:19] LABS: Albumin 2.6 G/DL (3.4-5.0); Bilirubin,Total 1.6 MG/DL (0.2-1.0); Calcium 7.8 MG/DL (8.5-10.1); INR 2.7; Osmolality,Calculated 282.7 MOS/KG (273-304); Partial Thromboplastin Time 34.4 SECS (0-40); Potassium 3.3 MMOL/L (3.5-5.1); Total Protein 5.9 G/DL (6.4-8.3)
[2017-09-28 05:30] LABS: Lactic Acid 3.6 MMOL/L (0.4-2.0)
[2017-09-28 05:31] LABS: Band Neutrophils 7 % (0-10); Lymphocytes 3 % (20-55); Platelet Estimate Normal; Segmented Neutrophils 89 % (50-85); Total Cells Counted 100
[2017-09-28] MEDS ORDERED: LINEZOLID 600 MG/300 ML PREMIX IV ONE (05:32)
[2017-09-28 05:33] LABS: PT Patient Result 27.5 SECS; Risk Ratio 2.07; Thyroid Stimulating Hormone 2.36 uIU/ml (0.358-3.74)
[2017-09-28] MEDS: LINEZOLID INJ 600 MG in PREMIX 1 EACH IV SCH ×2 (05:33→16:16)
[2017-09-28] MEDS: SODIUM CHLORIDE 0.9% 1,000 ML IV SCH ×3 (06:21→17:27)
[2017-09-28] MEDS ORDERED: DILTIAZEM INJ 100 MG in SODIUM CHLORIDE 0.9% 100 ML IV SCH (06:30)
[2017-09-28] MEDS: ALBUTEROL/IPRATROPIUM 3 ML NEB RESP TX SCH ×3 (07:15→20:06)
[2017-09-28] MEDS ORDERED: MIDAZOLAM 2 MG/2 ML VIAL IV ONE (07:40)
[2017-09-28] MEDS ORDERED: LIDOCAINE 1% 20 ML VIAL MISC INJ ONE (07:40)
[2017-09-28] MEDS: DOCUSATE SODIUM 100 MG CAPSULE PO SCH ×2 (10:13→21:47)
[2017-09-28] MEDS: PANTOPRAZOLE 40 MG VIAL IV SCH (10:16)
[2017-09-28] MEDS: METOPROLOL TARTRATE 5 MG/5 ML VIAL IV SCH ×3 (10:17→22:10)
[2017-09-28] MEDS: PHENYLEPHRINE DRIP 40 MG/250 ML PREMIX IV SCH (10:19)
[2017-09-28 11:01] LABS: ABG Base Excess 4.4 MMOL/L (-2.5-2.5); ABG HCO3 28.4 MMOL/L (20-26); ABG Oxygen Saturation 99.5 % (95-100); ABG PCO2 47.7 MM HG (35-48); ABG PH 7.405 (7.35-7.45); ABG TCO2 26.8 MMOL/L (23-27)
[2017-09-28] MEDS: THYROID 60 MG TABLET PO SCH (18:40)
[2017-09-28] MEDS: CARBOXYMETHYLCELLULOSE 1% OPH SOLN BOTH EYES SCH (21:50)
[2017-09-28] MEDS: POTASSIUM CHLORIDE RIDER 10 MEQ in PREMIX 1 EACH IV PRN ×2 (22:46→23:49)
[2017-09-29] MEDS: POTASSIUM CHLORIDE RIDER 10 MEQ in PREMIX 1 EACH IV PRN ×2 (00:51→01:55)
[2017-09-29] MEDS: ALBUTEROL/IPRATROPIUM 3 ML NEB RESP TX SCH ×4 (01:17→20:39)
[2017-09-29] MEDS: MEROPENEM 1,000 MG in SYRINGE 1 EACH IV SCH ×3 (04:35→20:30)
[2017-09-29] MEDS: LINEZOLID INJ 600 MG in PREMIX 1 EACH IV SCH ×2 (04:42→17:54)
[2017-09-29 04:50] LABS: ABG HCO3 28.9 MMOL/L (20-26); ABG Oxygen Saturation 97.1 % (95-100); ABG PCO2 38.1 MM HG (35-48); ABG PH 7.484 (7.35-7.45); ABG PO2 87.9 MM HG (80-95); ABG TCO2 25.6 MMOL/L (23-27); Allen Test Positive; Pt O2 Delivery Device Ventilator
[2017-09-29] MEDS: PROPOFOL 1,000 MG/100 ML BOTTLE IV SCH (05:49)
[2017-09-29] MEDS: SODIUM CHLORIDE 0.9% 1,000 ML IV SCH ×2 (05:54→19:15)
[2017-09-29 06:00] LABS: Basophils % 0.1 % (0.0-0.8); Hematocrit 35.7 VOL% (35.7-47.0); Hemoglobin 10.9 GM/DL (12.0-16.0); Lymphocytes # 0.8 10*3/uL (1.4-4.0); Mean Corpuscular HGB Conc 30.5 GM/DL (32-36); Mean Corpuscular Hemoglobin 28 PG (27-34); Mean Platelet Volume 11.4 FL (9.6-12.0); Monocytes # 0.9 10*3/uL (0.11-0.8); Monocytes % 4.5 % (1.7-12.7); Neutrophils # 17.2 10*3/uL (1.4-7.4); Neutrophils % 90.4 % (38.7-73.9); Platelet Count 157 T/CUMM (130-400); Red Blood Count 3.88 MC/CUMM (3.8-5.5); White Blood Count 19.1 T/CUMM (4-12)
[2017-09-29 06:07] LABS: INR 4.6
[2017-09-29 06:12] LABS: PT Patient Result 45.5 SECS
[2017-09-29 06:20] LABS: Calcium 8.5 MG/DL (8.5-10.1); Osmolality,Calculated 285.8 MOS/KG (273-304); Potassium 4.4 MMOL/L (3.5-5.1)
[2017-09-29 06:21] LABS: Band Neutrophils 4 % (0-10); Hypochromasia 1+; Lymphocytes 6 % (20-55); Segmented Neutrophils 88 % (50-85); Total Cells Counted 100
[2017-09-29 06:22] LABS: Acanthocytes Few; Microcytosis 1+; Ovalocytes Few; Platelet Estimate Adequate; Polychromasia Slight
[2017-09-29 06:25] LABS: Prealbumin 19.6 MG/DL (20-40)
[2017-09-29] MEDS ORDERED: FUROSEMIDE 40 MG/4 ML VIAL IV ONE (06:49)
[2017-09-29] MEDS: PHENYLEPHRINE DRIP 40 MG/250 ML PREMIX IV SCH (07:40)
[2017-09-29] MEDS: METOPROLOL TARTRATE 5 MG/5 ML VIAL IV SCH (07:43)
[2017-09-29] MEDS: DOCUSATE SODIUM 100 MG CAPSULE PO SCH ×2 (08:49→23:24)
[2017-09-29] MEDS: MONTELUKAST 10 MG TABLET PO SCH (08:50)
[2017-09-29] MEDS: PANTOPRAZOLE 40 MG VIAL IV SCH (08:50)
[2017-09-29] MEDS: CARBOXYMETHYLCELLULOSE 1% OPH SOLN BOTH EYES SCH ×2 (08:50→20:46)
[2017-09-29] MEDS ORDERED: GLUCAGON 1 MG VIAL IM PRN (09:50)
[2017-09-29] MEDS ORDERED: DEXTROSE 50% 25 GM/50 ML VIAL IV PRN (09:50)
[2017-09-29] MEDS: INSULIN REGULAR 100 UNIT/ML SUBCUT SCH ×2 (12:13→17:52)
[2017-09-29] MEDS: GENTAMICIN INJ 100 MG in PREMIX 1 EACH IV SCH (15:09)
[2017-09-29] MEDS: THYROID 60 MG TABLET PO SCH (17:50)
[2017-09-29] MEDS: DILTIAZEM INJ 100 MG in SODIUM CHLORIDE 0.9% 100 ML IV SCH (18:05)
[2017-09-29] MEDS: METOPROLOL TARTRATE 25 MG TABLET PO SCH (20:46)
[2017-09-30] MEDS: INSULIN REGULAR 100 UNIT/ML SUBCUT SCH ×4 (00:38→18:17)
[2017-09-30] MEDS: ALBUTEROL/IPRATROPIUM 3 ML NEB RESP TX SCH ×4 (00:56→19:37)
[2017-09-30 03:47] LABS: Basophils % 0.1 % (0.0-0.8); Eosinophils % 0.1 % (0.00-10.9); Hemoglobin 10.9 GM/DL (12.0-16.0); Immature Granulocytes % 0.9 %; Immature Granulocytes Absolute 0.16 #; Lymphocytes # 1.1 10*3/uL (1.4-4.0); Mean Corpuscular HGB Conc 31.1 GM/DL (32-36); Mean Corpuscular Hemoglobin 29 PG (27-34); Mean Corpuscular Volume 91.6 FL (87-102); Mean Platelet Volume 11.5 FL (9.6-12.0); Monocytes # 1.3 10*3/uL (0.11-0.8); Monocytes % 6.9 % (1.7-12.7); NRBC # 0.02 10*3/uL; Neutrophils # 15.6 10*3/uL (1.4-7.4); Platelet Count 140 T/CUMM (130-400); Red Blood Count 3.82 MC/CUMM (3.8-5.5); White Blood Count 18.2 T/CUMM (4-12)
[2017-09-30 04:15] LABS: Calcium 8.7 MG/DL (8.5-10.1); Osmolality,Calculated 283.5 MOS/KG (273-304); Potassium 4.1 MMOL/L (3.5-5.1)
[2017-09-30] MEDS: MEROPENEM 1,000 MG in SYRINGE 1 EACH IV SCH ×2 (04:49→11:02)
[2017-09-30] MEDS: LINEZOLID INJ 600 MG in PREMIX 1 EACH IV SCH ×2 (04:49→15:55)
[2017-09-30 05:23] LABS: ABG Base Excess 8.1 MMOL/L (-2.5-2.5); ABG HCO3 31.8 MMOL/L (20-26); ABG Oxygen Saturation 96.3 % (95-100); ABG PCO2 44.8 MM HG (35-48); ABG PH 7.472 (7.35-7.45); ABG TCO2 29.5 MMOL/L (23-27); Allen Test Positive; Pt O2 Delivery Device Ventilator
[2017-09-30 06:49] LABS: INR 1.6
[2017-09-30] MEDS: DILTIAZEM INJ 100 MG in SODIUM CHLORIDE 0.9% 100 ML IV SCH ×2 (07:31→17:04)
[2017-09-30] MEDS: PROPOFOL 1,000 MG/100 ML BOTTLE IV SCH ×2 (08:02→16:31)
[2017-09-30] MEDS: PANTOPRAZOLE 40 MG VIAL IV SCH (08:16)
[2017-09-30] MEDS: MONTELUKAST 10 MG TABLET PO SCH (08:16)
[2017-09-30] MEDS: CARBOXYMETHYLCELLULOSE 1% OPH SOLN BOTH EYES SCH ×2 (08:16→20:56)
[2017-09-30] MEDS: DOCUSATE SODIUM 100 MG CAPSULE PO SCH ×2 (08:16→20:58)
[2017-09-30] MEDS: METOPROLOL TARTRATE 25 MG TABLET PO SCH ×2 (08:16→20:51)
[2017-09-30 08:25] LABS: PT Patient Result 16.9 SECS
[2017-09-30] MEDS: HEPARIN DRIP 25,000 UNITS/500 ML PREMIX IV SCH (10:43)
[2017-09-30] MEDS: DILTIAZEM CD 240 MG CAPSULE PO SCH ×2 (10:53→20:50)
[2017-09-30] MEDS: GENTAMICIN INJ 100 MG in PREMIX 1 EACH IV SCH (13:19)
[2017-09-30] MEDS: cefTAZidime 1,000 MG in SYRINGE 1 EACH IV SCH ×2 (14:40→19:52)
[2017-09-30] MEDS: THYROID 60 MG TABLET PO SCH (17:11)
[2017-09-30] MEDS: WARFARIN 4 MG TABLET PO SCH (17:12)
[2017-09-30] MEDS ORDERED: HEPARIN 5,000 UNIT/1 ML VIAL IV ONE (17:56)
[2017-09-30] MEDS: SODIUM CHLORIDE 0.9% 1,000 ML IV SCH (20:19)
[2017-10-01] MEDS: ALBUTEROL/IPRATROPIUM 3 ML NEB RESP TX SCH ×4 (00:44→19:32)
[2017-10-01] MEDS: INSULIN REGULAR 100 UNIT/ML SUBCUT SCH ×4 (01:31→18:55)
[2017-10-01] MEDS: PROPOFOL 1,000 MG/100 ML BOTTLE IV SCH ×3 (03:02→21:05)
[2017-10-01 03:30] LABS: Basophils % 0.1 % (0.0-0.8); Eosinophils # 0.1 10*3/uL (0.0-0.87); Eosinophils % 0.8 % (0.00-10.9); Hematocrit 35.5 VOL% (35.7-47.0); Hemoglobin 10.9 GM/DL (12.0-16.0); Immature Granulocytes % 1.1 %; Immature Granulocytes Absolute 0.13 #; Lymphocytes # 1.6 10*3/uL (1.4-4.0); Lymphocytes % 13.6 % (21.3-54.2); Mean Corpuscular HGB Conc 30.7 GM/DL (32-36); Mean Corpuscular Hemoglobin 28 PG (27-34); Mean Platelet Volume 11.7 FL (9.6-12.0); Monocytes # 0.8 10*3/uL (0.11-0.8); Monocytes % 7.2 % (1.7-12.7); NRBC # 0.06 10*3/uL; Neutrophils # 8.8 10*3/uL (1.4-7.4); Neutrophils % 77.2 % (38.7-73.9); Platelet Count 176 T/CUMM (130-400); Red Cell Distribution Width 17.2 % (9.3-17.3); White Blood Count 11.4 T/CUMM (4-12)
[2017-10-01 03:38] LABS: INR 1.1; PT Patient Result 11.5 SECS
[2017-10-01 04:00] LABS: ABG Base Excess 8.8 MMOL/L (-2.5-2.5); ABG HCO3 33.5 MMOL/L (20-26); ABG Oxygen Saturation 97.3 % (95-100); ABG PCO2 46.6 MM HG (35-48); ABG PH 7.474 (7.35-7.45); ABG TCO2 34.9 MMOL/L (23-27); Allen Test Positive; Pt O2 Delivery Device Ventilator
[2017-10-01 04:14] LABS: Calcium 8.5 MG/DL (8.5-10.1); Osmolality,Calculated 285.4 MOS/KG (273-304); Potassium 4.4 MMOL/L (3.5-5.1)
[2017-10-01] MEDS: cefTAZidime 1,000 MG in SYRINGE 1 EACH IV SCH ×3 (04:15→20:07)
[2017-10-01] MEDS: LINEZOLID INJ 600 MG in PREMIX 1 EACH IV SCH ×2 (04:20→17:45)
[2017-10-01 09:34] LABS: ABG Base Excess 6.4 MMOL/L (-2.5-2.5); ABG HCO3 30.2 MMOL/L (20-26); ABG Oxygen Saturation 96.2 % (95-100); ABG PO2 88.4 MM HG (80-95); Pt O2 Delivery Device Ventilator
[2017-10-01] MEDS: METOPROLOL TARTRATE 25 MG TABLET PO SCH ×2 (10:08→20:06)
[2017-10-01] MEDS: DOCUSATE SODIUM 100 MG CAPSULE PO SCH ×2 (10:08→20:15)
[2017-10-01] MEDS: CARBOXYMETHYLCELLULOSE 1% OPH SOLN BOTH EYES SCH ×2 (10:09→20:18)
[2017-10-01] MEDS: MONTELUKAST 10 MG TABLET PO SCH (10:09)
[2017-10-01] MEDS: PANTOPRAZOLE 40 MG VIAL IV SCH (10:09)
[2017-10-01] MEDS ORDERED: DILTIAZEM 60 MG TABLET PO SCH (13:00)
[2017-10-01] MEDS: DILTIAZEM 60 MG TABLET PO SCH ×3 (13:46→20:06)
[2017-10-01] MEDS ORDERED: HEPARIN 5,000 UNIT/1 ML VIAL IV ONE (14:05)
[2017-10-01] MEDS: GENTAMICIN INJ 100 MG in PREMIX 1 EACH IV SCH (14:13)
[2017-10-01] MEDS: HEPARIN DRIP 25,000 UNITS/500 ML PREMIX IV SCH (15:11)
[2017-10-01] MEDS: WARFARIN 4 MG TABLET PO SCH (17:48)
[2017-10-01] MEDS: DILTIAZEM INJ 100 MG in SODIUM CHLORIDE 0.9% 100 ML IV SCH (17:48)
[2017-10-01] MEDS: THYROID 60 MG TABLET PO SCH (17:48)
[2017-10-01] MEDS: SODIUM CHLORIDE 0.9% 1,000 ML IV SCH (21:52)
[2017-10-02] MEDS: ALBUTEROL/IPRATROPIUM 3 ML NEB RESP TX SCH ×4 (00:10→19:17)
[2017-10-02 03:07] LABS: Basophils % 0.1 % (0.0-0.8); Eosinophils # 0.2 10*3/uL (0.0-0.87); Hemoglobin 10.1 GM/DL (12.0-16.0); Immature Granulocytes % 0.7 %; Immature Granulocytes Absolute 0.06 #; Lymphocytes # 1.7 10*3/uL (1.4-4.0); Lymphocytes % 20.3 % (21.3-54.2); Mean Corpuscular HGB Conc 30.6 GM/DL (32-36); Mean Corpuscular Hemoglobin 28 PG (27-34); Mean Corpuscular Volume 91.9 FL (87-102); Mean Platelet Volume 11.9 FL (9.6-12.0); Monocytes # 0.7 10*3/uL (0.11-0.8); Monocytes % 8.2 % (1.7-12.7); Neutrophils # 5.8 10*3/uL (1.4-7.4); Neutrophils % 68.7 % (38.7-73.9); Platelet Count 142 T/CUMM (130-400); Red Blood Count 3.59 MC/CUMM (3.8-5.5); Red Cell Distribution Width 16.7 % (9.3-17.3); White Blood Count 8.4 T/CUMM (4-12)
[2017-10-02 03:16] LABS: PT Patient Result 10.7 SECS
[2017-10-02 03:30] LABS: Calcium 8.5 MG/DL (8.5-10.1); Osmolality,Calculated 285.3 MOS/KG (273-304); Potassium 4.4 MMOL/L (3.5-5.1)
[2017-10-02 04:13] LABS: Allen Test Positive; Pt O2 Delivery Device Ventilator
[2017-10-02] MEDS: INSULIN REGULAR 100 UNIT/ML SUBCUT SCH ×4 (04:14→18:18)
[2017-10-02 04:15] LABS: ABG Base Excess 6.6 MMOL/L (-2.5-2.5); ABG HCO3 30.4 MMOL/L (20-26); ABG Oxygen Saturation 98.3 % (95-100); ABG PCO2 47.5 MM HG (35-48); ABG PH 7.433 (7.35-7.45)
[2017-10-02] MEDS: cefTAZidime 1,000 MG in SYRINGE 1 EACH IV SCH ×3 (04:21→19:42)
[2017-10-02] MEDS: LINEZOLID INJ 600 MG in PREMIX 1 EACH IV SCH ×2 (04:22→18:24)
[2017-10-02] MEDS: PROPOFOL 1,000 MG/100 ML BOTTLE IV SCH ×2 (05:31→20:00)
[2017-10-02] MEDS: METOPROLOL TARTRATE 25 MG TABLET PO SCH ×2 (08:10→21:27)
[2017-10-02] MEDS: MONTELUKAST 10 MG TABLET PO SCH (08:10)
[2017-10-02] MEDS: DILTIAZEM 60 MG TABLET PO SCH ×3 (08:11→21:00)
[2017-10-02] MEDS: PANTOPRAZOLE 40 MG VIAL IV SCH (08:11)
[2017-10-02] MEDS: DOCUSATE SODIUM 100 MG CAPSULE PO SCH ×2 (08:12→21:36)
[2017-10-02] MEDS: CARBOXYMETHYLCELLULOSE 1% OPH SOLN BOTH EYES SCH ×2 (08:13→21:35)
[2017-10-02] MEDS: FUROSEMIDE 40 MG/4 ML VIAL IV SCH (08:37)
[2017-10-02] MEDS: HALOPERIDOL 5 MG/ML AMP IV SCH ×2 (08:40→20:02)
[2017-10-02 09:22] LABS: ABG Base Excess 1.9 MMOL/L (-2.5-2.5); ABG Oxygen Saturation 94.5 % (95-100); ABG PCO2 48.8 MM HG (35-48); ABG PH 7.365 (7.35-7.45); ABG PO2 82.9 MM HG (80-95); ABG TCO2 25.3 MMOL/L (23-27); Pt O2 Delivery Device Ventilator
[2017-10-02] MEDS: DEXMEDETOMIDINE 200 MCG in SODIUM CHLORIDE 0.9% 48 ML IV PRN ×2 (09:53→19:05)
[2017-10-02] MEDS: DILTIAZEM CD 240 MG CAPSULE PO SCH (10:01)
[2017-10-02] MEDS: HEPARIN DRIP 25,000 UNITS/500 ML PREMIX IV SCH ×2 (10:10→19:35)
[2017-10-02] MEDS: GENTAMICIN INJ 100 MG in PREMIX 1 EACH IV SCH (15:01)
[2017-10-02] MEDS: DILTIAZEM INJ 100 MG in SODIUM CHLORIDE 0.9% 100 ML IV SCH (17:35)
[2017-10-02] MEDS: THYROID 60 MG TABLET PO SCH (18:03)
[2017-10-02] MEDS: WARFARIN 5 MG TABLET PO SCH (18:03)
[2017-10-02] MEDS ORDERED: PROPOFOL 1,000 MG/100 ML BOTTLE IV ONE (20:04)
[2017-10-03] MEDS: ALBUTEROL/IPRATROPIUM 3 ML NEB RESP TX SCH ×4 (00:18→19:14)
[2017-10-03] MEDS: INSULIN REGULAR 100 UNIT/ML SUBCUT SCH ×4 (00:31→18:00)
[2017-10-03] MEDS: PROPOFOL 1,000 MG/100 ML BOTTLE IV SCH ×3 (02:33→22:09)
[2017-10-03] MEDS: cefTAZidime 1,000 MG in SYRINGE 1 EACH IV SCH ×3 (04:24→19:30)
[2017-10-03] MEDS: LINEZOLID INJ 600 MG in PREMIX 1 EACH IV SCH ×2 (04:26→17:20)
[2017-10-03 04:37] LABS: Eosinophils # 0.1 10*3/uL (0.0-0.87); Eosinophils % 1.8 % (0.00-10.9); Hematocrit 28.6 VOL% (35.7-47.0); Hemoglobin 8.6 GM/DL (12.0-16.0); Immature Granulocytes % 0.6 %; Immature Granulocytes Absolute 0.04 #; Lymphocytes # 1.2 10*3/uL (1.4-4.0); Lymphocytes % 17.6 % (21.3-54.2); Mean Corpuscular HGB Conc 30.1 GM/DL (32-36); Mean Corpuscular Hemoglobin 28 PG (27-34); Mean Corpuscular Volume 93.8 FL (87-102); Mean Platelet Volume 12.9 FL (9.6-12.0); Monocytes # 0.6 10*3/uL (0.11-0.8); Monocytes % 9.7 % (1.7-12.7); Neutrophils # 4.7 10*3/uL (1.4-7.4); Neutrophils % 70.3 % (38.7-73.9); Platelet Count 113 T/CUMM (130-400); Red Blood Count 3.05 MC/CUMM (3.8-5.5); Red Cell Distribution Width 16.5 % (9.3-17.3); White Blood Count 6.6 T/CUMM (4-12)
[2017-10-03 04:51] LABS: PT Patient Result 10.6 SECS
[2017-10-03 05:00] LABS: Calcium 8.8 MG/DL (8.5-10.1); Osmolality,Calculated 286.3 MOS/KG (273-304); Potassium 4.2 MMOL/L (3.5-5.1)
[2017-10-03 05:04] LABS: Prealbumin 21.3 MG/DL (20-40)
[2017-10-03] MEDS: CARBOXYMETHYLCELLULOSE 1% OPH SOLN BOTH EYES SCH ×2 (09:11→22:10)
[2017-10-03] MEDS: MONTELUKAST 10 MG TABLET PO SCH (09:11)
[2017-10-03] MEDS: DILTIAZEM 60 MG TABLET PO SCH ×2 (09:11→22:04)
[2017-10-03] MEDS: METOPROLOL TARTRATE 25 MG TABLET PO SCH ×2 (09:12→22:05)
[2017-10-03] MEDS: PANTOPRAZOLE 40 MG VIAL IV SCH (09:22)
[2017-10-03] MEDS: HALOPERIDOL 5 MG/ML AMP IV SCH ×3 (09:31→22:09)
[2017-10-03 09:40] LABS: Hemoglobin 10.2 GM/DL (12.0-16.0)
[2017-10-03] MEDS: DOCUSATE SODIUM 100 MG CAPSULE PO SCH ×2 (10:04→22:08)
[2017-10-03] MEDS: HEPARIN DRIP 25,000 UNITS/500 ML PREMIX IV SCH (11:38)
[2017-10-03] MEDS: GENTAMICIN INJ 100 MG in PREMIX 1 EACH IV SCH (15:00)
[2017-10-03] MEDS: WARFARIN 5 MG TABLET PO SCH (17:30)
[2017-10-03] MEDS: THYROID 60 MG TABLET PO SCH (17:30)
[2017-10-03] MEDS: DILTIAZEM INJ 100 MG in SODIUM CHLORIDE 0.9% 100 ML IV SCH (17:48)
[2017-10-03] MEDS: FUROSEMIDE 40 MG/4 ML VIAL IV SCH (18:00)
[2017-10-03] MEDS: DEXMEDETOMIDINE 200 MCG in SODIUM CHLORIDE 0.9% 48 ML IV PRN (19:36)
[2017-10-04] MEDS: ALBUTEROL/IPRATROPIUM 3 ML NEB RESP TX SCH ×4 (00:45→20:06)
[2017-10-04] MEDS: INSULIN REGULAR 100 UNIT/ML SUBCUT SCH ×4 (01:07→18:25)
[2017-10-04] MEDS: DEXMEDETOMIDINE 200 MCG in SODIUM CHLORIDE 0.9% 48 ML IV PRN ×2 (01:16→05:12)
[2017-10-04] MEDS: HEPARIN DRIP 25,000 UNITS/500 ML PREMIX IV SCH ×2 (02:01→11:01)
[2017-10-04 04:24] LABS: ABG Base Excess -0.1 MMOL/L (-2.5-2.5); ABG HCO3 24.3 MMOL/L (20-26); ABG Oxygen Saturation 99.1 % (95-100); ABG PCO2 37.9 MM HG (35-48); ABG PH 7.414 (7.35-7.45); ABG TCO2 22.2 MMOL/L (23-27); Allen Test Positive; Pt O2 Delivery Device Ventilator
[2017-10-04 04:34] LABS: Basophils % 0.1 % (0.0-0.8); Eosinophils # 0.1 10*3/uL (0.0-0.87); Eosinophils % 1.4 % (0.00-10.9); Hematocrit 26.6 VOL% (35.7-47.0); Immature Granulocytes Absolute 0.09 #; Lymphocytes % 10.7 % (21.3-54.2); Mean Corpuscular HGB Conc 30.1 GM/DL (32-36); Mean Corpuscular Hemoglobin 28 PG (27-34); Mean Corpuscular Volume 92.4 FL (87-102); Mean Platelet Volume 13.8 FL (9.6-12.0); Monocytes # 0.8 10*3/uL (0.11-0.8); Monocytes % 9.3 % (1.7-12.7); NRBC # 0.02 10*3/uL; Neutrophils % 77.5 % (38.7-73.9); Platelet Count 108 T/CUMM (130-400); Red Blood Count 2.88 MC/CUMM (3.8-5.5); Red Cell Distribution Width 16.5 % (9.3-17.3)
[2017-10-04 05:04] LABS: Calcium 8.5 MG/DL (8.5-10.1); Osmolality,Calculated 282.5 MOS/KG (273-304); Potassium 4.4 MMOL/L (3.5-5.1)
[2017-10-04] MEDS: cefTAZidime 1,000 MG in SYRINGE 1 EACH IV SCH ×3 (05:17→19:52)
[2017-10-04] MEDS: LINEZOLID INJ 600 MG in PREMIX 1 EACH IV SCH (06:05)
[2017-10-04] MEDS: PROPOFOL 1,000 MG/100 ML BOTTLE IV SCH ×2 (07:24→20:15)
[2017-10-04] MEDS: FUROSEMIDE 40 MG/4 ML VIAL IV SCH ×2 (08:15→18:26)
[2017-10-04] MEDS: HALOPERIDOL 5 MG/ML AMP IV SCH ×3 (08:19→21:29)
[2017-10-04] MEDS ORDERED: DOCUSATE SODIUM 100 MG CAPSULE PO PRN (08:35)
[2017-10-04] MEDS: PANTOPRAZOLE 40 MG VIAL IV SCH (09:10)
[2017-10-04] MEDS: DOCUSATE SODIUM 100 MG CAPSULE PO SCH (09:19)
[2017-10-04] MEDS: METOPROLOL TARTRATE 25 MG TABLET PO SCH ×2 (09:20→21:30)
[2017-10-04] MEDS: MONTELUKAST 10 MG TABLET PO SCH (09:20)
[2017-10-04] MEDS: CARBOXYMETHYLCELLULOSE 1% OPH SOLN BOTH EYES SCH ×2 (09:20→21:30)
[2017-10-04] MEDS: DILTIAZEM 60 MG TABLET PO SCH ×2 (09:20→21:30)
[2017-10-04] MEDS: [UNRECOGNIZED DRUG - MIXTURE] IV SCH ×2 (10:38→18:26)
[2017-10-04 12:38] LABS: Hematocrit 24.8 VOL% (35.7-47.0); Hemoglobin 7.7 GM/DL (12.0-16.0)
[2017-10-04] MEDS ORDERED: SODIUM CHLORIDE 0.9% 500 ML IV ONE (16:00)
[2017-10-04] MEDS: DILTIAZEM INJ 100 MG in SODIUM CHLORIDE 0.9% 100 ML IV SCH (16:56)
[2017-10-04 17:04] LABS: Apearance,Urine Slightly Hazy (Clear); Bacteria,Urine Many /HPF (Few); Bilirubin,Urine Negative (Negative); Blood, Urine Moderate mg/dL (Negative); Glucose,Urine (UA) 50 mg/dL (Negative); Ketones,Urine Negative (Negative); Mucus,Urine Occasional /LPF (Occasional); Nitrite,Urine Negative (Negative); Protein,Urine 100 MG/DL; RBC,Urine 6653 /HPF (0-4); Urine Color Red (Yellow); Urine Specific Gravity 1.009 (1.001-1.035); Urine Urobilinogen < 2.0 EU/DL (0.2-1.0); WBC,Urine 105 /HPF (0-6)
[2017-10-04] MEDS: THYROID 60 MG TABLET PO SCH (18:25)
[2017-10-04] MEDS: WARFARIN 5 MG TABLET PO SCH (18:25)
[2017-10-05] MEDS: INSULIN REGULAR 100 UNIT/ML SUBCUT SCH ×4 (00:07→18:32)
[2017-10-05] MEDS: [UNRECOGNIZED DRUG - MIXTURE] IV SCH ×3 (01:38→18:26)
[2017-10-05] MEDS: HALOPERIDOL 5 MG/ML AMP IV SCH ×4 (01:38→20:26)
[2017-10-05] MEDS: ALBUTEROL/IPRATROPIUM 3 ML NEB RESP TX SCH ×4 (01:52→19:23)
[2017-10-05] MEDS: HEPARIN DRIP 25,000 UNITS/500 ML PREMIX IV SCH ×2 (02:22→09:54)
[2017-10-05 04:28] LABS: Allen Test Positive; Pt O2 Delivery Device Ventilator
[2017-10-05 04:29] LABS: ABG Base Excess -0.1 MMOL/L (-2.5-2.5); ABG HCO3 23.3 MMOL/L (20-26); ABG Oxygen Saturation 98.4 % (95-100); ABG PCO2 32.6 MM HG (35-48); ABG PH 7.472 (7.35-7.45); ABG PO2 153.3 MM HG (80-95); ABG TCO2 24.3 MMOL/L (23-27)
[2017-10-05] MEDS: cefTAZidime 1,000 MG in SYRINGE 1 EACH IV SCH ×3 (04:45→20:27)
[2017-10-05 04:58] LABS: Basophils % 0.2 % (0.0-0.8); Eosinophils # 0.1 10*3/uL (0.0-0.87); Eosinophils % 1.1 % (0.00-10.9); Hematocrit 24.5 VOL% (35.7-47.0); Hemoglobin 7.5 GM/DL (12.0-16.0); Immature Granulocytes % 1.6 %; Lymphocytes # 1.8 10*3/uL (1.4-4.0); Lymphocytes % 14.2 % (21.3-54.2); Mean Corpuscular HGB Conc 30.6 GM/DL (32-36); Mean Corpuscular Hemoglobin 29 PG (27-34); Mean Corpuscular Volume 93.5 FL (87-102); Mean Platelet Volume 13.9 FL (9.6-12.0); Monocytes # 1.4 10*3/uL (0.11-0.8); Monocytes % 11.2 % (1.7-12.7); NRBC # 0.06 10*3/uL; Neutrophils # 8.9 10*3/uL (1.4-7.4); Neutrophils % 71.7 % (38.7-73.9); Platelet Count 123 T/CUMM (130-400); Red Blood Count 2.62 MC/CUMM (3.8-5.5); Red Cell Distribution Width 16.7 % (9.3-17.3); White Blood Count 12.4 T/CUMM (4-12)
[2017-10-05 05:09] LABS: INR 1.1; PT Patient Result 11.6 SECS
[2017-10-05 05:11] LABS: Calcium 7.9 MG/DL (8.5-10.1); Osmolality,Calculated 276.7 MOS/KG (273-304); Potassium 3.4 MMOL/L (3.5-5.1)
[2017-10-05] MEDS: MONTELUKAST 10 MG TABLET PO SCH (09:30)
[2017-10-05] MEDS: DILTIAZEM 60 MG TABLET PO SCH ×2 (09:30→22:16)
[2017-10-05] MEDS: METOPROLOL TARTRATE 25 MG TABLET PO SCH ×2 (09:30→22:17)
[2017-10-05] MEDS: FUROSEMIDE 40 MG/4 ML VIAL IV SCH ×2 (09:35→16:21)
[2017-10-05] MEDS: PANTOPRAZOLE 40 MG VIAL IV SCH (09:38)
[2017-10-05] MEDS: CARBOXYMETHYLCELLULOSE 1% OPH SOLN BOTH EYES SCH ×2 (09:44→22:18)
[2017-10-05] MEDS ORDERED: SODIUM CHLORIDE 0.9% 1,000 ML IV PRN (11:23)
[2017-10-05] MEDS ORDERED: POTASSIUM CHLORIDE RIDER 20 MEQ in PREMIX 1 EACH IV PRN (11:28)
[2017-10-05] MEDS: PROPOFOL 1,000 MG/100 ML BOTTLE IV SCH ×2 (12:37→22:17)
[2017-10-05] MEDS: POTASSIUM CHLORIDE RIDER 10 MEQ in PREMIX 1 EACH IV PRN (16:21)
[2017-10-05] MEDS: DILTIAZEM INJ 100 MG in SODIUM CHLORIDE 0.9% 100 ML IV SCH (16:31)
[2017-10-05] MEDS: THYROID 60 MG TABLET PO SCH (17:23)
[2017-10-05] MEDS: WARFARIN 5 MG TABLET PO SCH (17:24)
[2017-10-05] MEDS ORDERED: MIDAZOLAM 100 MG in SODIUM CHLORIDE 0.9% 80 ML IV PRN (20:42)
[2017-10-05] MEDS ORDERED: PHENYLEPHRINE INJ 80 MG in SODIUM CHLORIDE 0.9% 242 ML IV PRN (22:11)
[2017-10-05] MEDS ORDERED: SODIUM CHLORIDE 0.9% 500 ML IV ONE (23:07)
[2017-10-05] MEDS ORDERED: MORPHINE 4 MG/1 ML VIAL IV PRN (23:30)
[2017-10-05] MEDS ORDERED: NOREPINEPHRINE 16 MG in SODIUM CHLORIDE 0.9% 234 ML IV PRN (23:45)
[2017-10-06] MEDS: ALBUTEROL/IPRATROPIUM 3 ML NEB RESP TX SCH (00:39)
[2017-10-06] MEDS: INSULIN REGULAR 100 UNIT/ML SUBCUT SCH (00:49)
[2017-10-06] MEDS ORDERED: PHENYLEPHRINE INJ 160 MG in SODIUM CHLORIDE 0.9% 234 ML IV PRN (01:00)
[2017-10-06] MEDS: [UNRECOGNIZED DRUG - MIXTURE] IV SCH (02:45)
[2017-10-06] MEDS: HALOPERIDOL 5 MG/ML AMP IV SCH (03:52)
[2017-10-06 05:43] VITALS: BP 40/29
[2017-10-06] MEDS: cefTAZidime 1,000 MG in SYRINGE 1 EACH IV SCH (05:59)
== END 2017-10-06 04:35 | disposition expired | DRG 870 ==
LOC: EDUNIT# → EDBD → N.ED 23:21 → N.EDINP 09-28 01:44 → SUATTDRO 09-28 01:44 → N.CC 09-28 04:02
PROVIDERS: ADMIT Internal Medicine; ATTEND Internal Medicine